=== PATIENT | female | born 1940 | race American Indian/Alaskan Native ===

== ENCOUNTER 2017-05-02 13:03 | Emergency (ER) | payer MEDICARE, OTHER ==
[2017-05-02 13:14] VITALS: RESP 18; TEMP 98; O2SAT 100; BMI 30.7
--- NOTE | 2017-05-02 14:14 | ED PDOC ---
Arrival/HPI - General Chief Complaint: Dizziness/Lightheaded Time Seen by Provider: 05/02/17 13:07 Historian: Patient - History of Present Illness Narrative History of Present Illness (Text): 05/02/17 14:10 A 76 year old female, whose past medical history includes hypertension, hyperlipidemia, and diabetes, presents to the emergency department with sudden onset dizziness this morning. The patient describes the dizziness as room- spinning sensation. She notes that she took medication for the dizziness, but does not recall the name nor the dose. She states she is eating normal and taking her medications appropriately. The patient denies fevers, chills, chest pain, shortness of breath, dyspnea on exertion, cough, abdominal pain, nausea, vomiting, diarrhea, back pain, neck pain, urinary/bowel changes, or any other complaint. PMD: Dr. Bartholomew Time/Duration: Other (This morning) Symptom Onset: Sudden Symptom Course: Unchanged Activities at Onset: Rest, Light Context: Home Past Medical History - Provider Review Nursing Documentation Reviewed: Yes - Infectious Disease Hx of Infectious Diseases: None - Reproductive Menopause: Yes - Cardiac Hx Hypertension: Yes - Pulmonary Hx Respiratory Disorders: No - Neurological Hx Dizziness: Yes Hx Transient Ischemic Attacks (TIA): Yes - HEENT Hx HEENT Disorder: No - Renal Hx Renal Disorder: No - Endocrine/Metabolic Hx Hypothyroidism: Yes - Hematological/Oncological Hx Blood Transfusions: No Hx Blood Transfusion Reaction: No - Integumentary Hx Dermatological Disorder: No - Musculoskeletal/Rheumatological Hx Falls: No - Genitourinary/Gynecological Hx Genitourinary Disorders: No - Psychiatric Hx Depression: No Hx Emotional Abuse: No Hx Physical Abuse: No Hx Substance Use: No - Anesthesia Hx Anesthesia: Yes Hx Anesthesia Reactions: No Hx Malignant Hyperthermia: No - Suicidal Assessment Feels Threatened In Home Enviroment: No Family/Social History - Physician Review Nursing Documentation Reviewed: Yes Family/Social History: No Known Family HX Smoking Status: Never Smoked Hx Alcohol Use: No Hx Substance Use: No Hx Substance Use Treatment: No Allergies/Home Meds Allergies/Adverse Reactions: Allergies No Known Allergies Allergy (Verified 12/27/11 18:34) Home Medications: Home Meds Medication Instructions Recorded Confirmed Hydrochlorothiazide/Irbesart 12.5 mg PO DAILY 12/27/11 05/02/17 [Avalide 25 mg-300 mg] Insulin Aspart Prot/Insuln Asp 30 units SC BID 12/27/11 05/02/17 [Novolog Mix 70/30 70 U/ml-30 U/ml 10 ml] Insulin Detemir [Levemir] 20 unit SC HS 12/27/11 05/02/17 Levothyroxine Sodium 0.5 mg PO DAILY 12/27/11 05/02/17 [Levothyroxine] Metoprolol Succinate 25 mg PO DAILY 12/27/11 05/02/17 Pravastatin Sodium [Pravastatin] 80 mg PO DAILY 12/27/11 05/02/17 Ergocalciferol [Vitamin D2] 1.25 mg PO MON 04/25/13 05/02/17 Review of Systems - Physician Review All systems were reviewed & negative as marked: Yes - Review of Systems Constitutional: absent: Fevers, Night Sweats Respiratory: absent: SOB, Cough Cardiovascular: absent: Chest Pain, MARTINS Gastrointestinal: absent: Abdominal Pain, Stool Changes, Diarrhea, Nausea, Vomiting Genitourinary Female: absent: Urine Output Changes Musculoskeletal: absent: Back Pain, Neck Pain Neurological: Dizziness Physical Exam Vital Signs Reviewed: Yes Vital Signs Temp Pulse Resp BP Pulse Ox 05/02/17 15:54 79 18 152/75 H 100 05/02/17 14:09 86 18 158/74 H 100 05/02/17 13:13 98.0 F 98 H 18 165/79 H 100 Temperature: Afebrile Blood Pressure: Hypertensive Pulse: Tachycardic Respiratory Rate: Normal Appearance: Positive for: Well-Appearing, Non-Toxic, Comfortable Pain Distress: None Mental Status: Positive for: Alert and Oriented X 3 Finger Stick Blood Glucose: 78 - Systems Exam Head: Present: Atraumatic, Normocephalic Pupils: Present: PERRL Extroacular Muscles: Present: EOMI Conjunctiva: Present: Normal Mouth: Present: Moist Mucous Membranes Neck: Present: Normal Range of Motion Respiratory/Chest: Present: Clear to Auscultation, Good Air Exchange. No: Respiratory Distress, Accessory Muscle Use Cardiovascular: Present: Regular Rate and Rhythm, Normal S1, S2. No: Murmurs Abdomen: Present: Normal Bowel Sounds. No: Tenderness, Distention, Peritoneal Signs Back: Present: Normal Inspection Upper Extremity: Present: Normal Inspection. No: Cyanosis, Edema Lower Extremity: Present: Normal Inspection. No: Edema Neurological: Present: GCS=15, CN II-XII Intact, Speech Normal Skin: Present: Warm, Dry, Normal Color. No: Rashes Psychiatric: Present: Alert, Oriented x 3, Normal Insight, Normal Concentration Medical Decision Making ED Course and Treatment: 05/02/17 14:15 Impression: A 76 year old female presents to the emergency department with a complaint of sudden onset dizziness this morning. Differential Diagnosis included but are not limited to: Benign positional vertigo vs Hypoglycemia Plan: -- EKG -- Labs -- Urinalysis -- Antivert -- Finger stick 78 -- Reassess and disposition Prior Visits: Notes and results from previous visits were reviewed. Patient was last seen in the emergency department on 12/27/11. The patient was seen for unsteady gait. Patient was hospitalized. Progress Notes: EKG: Ordered, reviewed, and independently interpreted the EKG. Rate : 95 BPM Rhythm : NSR Interpretation : Non specific ST- changes 05/02/17 18:04 Patient felt better with no longer having dizziness after given meclizine. UA negative for UTI. Patient's FS was 78 on arrival. Her blood work showed lower glucose at 53. Patient was given food. She felt even better after this. Patient hgb is 8 and Creatinine mildly elevated and states her PMD Dr. Bartholomew said it was at this level. Her family member arrived who will take her home. She was advised to follow up with Dr. Bartholomew in 1-2days. She was explained to keep eating at her normal level with proper dosages of insulin and her other meds. She was advised to return to the ED if symptoms worsen or any other concern. - Lab Interpretations Lab Results: 05/02/17 16:00 05/02/17 16:00 Lab Results 05/02/17 16:50: Urine Color Yellow, Urine Appearance Clear, Urine pH 6.0, Ur Specific [place] 1.020, Urine Protein Negative, Urine Glucose (UA) Negative, Urine Ketones Negative, Urine Blood Trace-intact H, Urine Nitrate Negative, Urine Bilirubin Negative, Urine Urobilinogen 0.2, Ur Leukocyte Esterase Small H , Urine RBC 0 - 2, Urine WBC 2 - 5, Ur Epithelial Cells 1 - 3, Urine Bacteria Few 05/02/17 16:00: Sodium 143, Potassium 4.5, Chloride 105, Carbon Dioxide 30, Anion Gap 13, BUN 21, Creatinine 1.3 H, Est GFR ( Amer) 48, Est GFR (Non- Af Amer) 40, Random Glucose 53 L, Calcium 9.8, Magnesium 2.0 05/02/17 16:00: WBC 6.3, RBC 2.90 L, Hgb 8.3 L, Hct 26.1 L, MCV 90.0, MCH 28.6, MCHC 31.8, RDW 19.3 H, Plt Count 372, MPV 9.2, Gran % 44.1 L, Lymph % (Auto) 47.0 H, [place] % (Auto) 6.8 H, Eos % (Auto) 1.9, Baso % (Auto) 0.2, Gran # 2.80, Lymph # 3.0, [place] # 0.4, Eos # 0.1, Baso # 0.01 I have reviewed the lab results: Yes - EKG Interpretation Interpreted by ED Physician: Yes Type: 12 lead EKG - Medication Orders Current Medication Orders: Discontinued Medications Meclizine HCl (Antivert) 25 mg PO STAT STA Stop: 05/02/17 13:52 Last Admin: 05/02/17 14:22 Dose: 25 mg - Scribe Statement The provider has reviewed the documentation as recorded by the Tao Gallegos Provider Scribe Attestation: All medical record entries made by the Dangeloibseun were at my direction and personally dictated by me. I have reviewed the chart and agree that the record accurately reflects my personal performance of the history, physical exam, medical decision making, and the department course for this patient. I have also personally directed, reviewed, and agree with the discharge instructions and disposition. Disposition/Present on Arrival - Present on Arrival Any Indicators Present on Arrival: No History of DVT/PE: No History of Uncontrolled Diabetes: No Urinary Catheter: No History of Decub. Ulcer: No History Surgical Site Infection Following: None - Disposition Have Diagnosis and Disposition been Completed?: Yes Diagnosis: Dizziness, Hypoglycemia Disposition: HOME/ ROUTINE Disposition Time: 18:04 Patient Plan: Discharge Condition: IMPROVED Discharge Instructions (ExitCare): Diabetic Hypoglycemia (ED), Dizziness (ED) Additional Instructions: Ms Lui, thank you for letting us take care of you today. Your provider was Dr. Humphries. You were treated for Hypoglycemia, Dizziness. The emergency medical care you received today was directed at your acute symptoms. If you were prescribed any medication, please fill it and take as directed. It may take several days for your symptoms to resolve. Return to the Emergency Department if your symptoms worsen, do not improve, or if you have any other problems. Please contact your doctor or call one of the physicians/clinics you have been referred to that are listed on the Patient Visit Information form that is included in your discharge packet. Bring any paperwork you were given at discharge with you along with any medications you are taking to your follow up visit. Our treatment cannot replace ongoing medical care by a primary care provider (PCP) outside of the emergency department. Thank you for allowing the [facility] team to be part of your care today. If you had an X-Ray or CT scan: A Radiologist will review the ED reading if any change in treatment is needed we will contact you. If you had a blood, urine, or wound culture: It will take several days for the results, if any change in treatment is needed we will contact you. If you had an STI test: It will take 48 hours for the results. Please call after 1 week if you have not heard back. Referrals: Griselda Bartholomew MD [Primary Care Provider] - Follow up with primary Forms: [employer] (Swazi)
[2017-05-02 15:55] VITALS: BP 152/75; PULSE 79
[2017-05-02 16:22] LABS: BASO # 0.01 K/mm3 (0.0-2.0); BASO % 0.2 % (0.0-3.0); EOS # 0.1 (0.0-0.7); EOS % 1.9 % (1.5-5.0); GRAN # 2.8 (1.4-6.5); GRAN % 44.1 % (50.0-68.0); HEMATOCRIT 26.1 % (36.0-48.0); MEAN CORPUSCULAR HEMOGLOBIN 28.6 pg (25.0-35.0); MEAN CORPUSCULAR HGB CONC 31.8 g/dl (31.0-37.0); MEAN PLATELET VOLUME 9.2 fl (7.0-11.0); MONO # 0.4 (0.1-0.6); MONO % 6.8 % (1.0-6.0); RED CELL DISTRIBUTION WIDTH 19.3 % (11.5-14.5); WHITE BLOOD COUNT 6.3 10^3/ul (4.5-11.0)
[2017-05-02 16:29] LABS: CALCIUM 9.8 mg/dL (8.4-10.5); POTASSIUM 4.5 mmol/L (3.6-5.0)
[2017-05-02 17:00] LABS: URINE BILIRUBIN NEGATIVE (NEGATIVE); URINE BLOOD TRACE-INTACT (NEGATIVE); URINE COLOR YELLOW (YELLOW); URINE GLUCOSE (UA) NEGATIVE (NEGATIVE); URINE KETONE NEGATIVE (NEGATIVE); URINE LEUKOCYTE ESTERASE SMALL Leu/uL (NEGATIVE); URINE PROTEIN NEGATIVE mg/dL (<30 mg/dL); URINE UROBILINOGEN 0.2 E.U./dL (<1 E.U./dL)
[2017-05-02 17:10] LABS: URINE APPEARANCE CLEAR (CLEAR); URINE BACTERIA FEW (NEG); URINE RBC 0 - 2 /hpf (0-2)
--- NOTE | 2017-05-03 10:14 | CARD ---
APPROVED REPORT EKG Measurement Heart [id number] <Conclusion> Normal sinus rhythm Septal infarct, age undetermined Abnormal ECG
== END 2017-05-02 18:04 | disposition home or self-care (01) ==
LOC: ED 13:03
DX: E11.649 Type 2 diabetes mellitus with hypoglycemia without coma (principal); R42 Dizziness and giddiness; E78.5 Hyperlipidemia, unspecified; I10 Essential (primary) hypertension; E03.9 Hypothyroidism, unspecified; Z86.73 Personal history of transient ischemic attack (TIA), and cerebral infarction without residual deficits

== ENCOUNTER 2017-06-12 11:12 | Inpatient (IN) | payer MEDICARE, OTHER ==
[2017-06-12 11:16] VITALS: BMI 31.9
[2017-06-12] MEDS ORDERED: Morphine 4 mg/ml ISec IVP STA (12:06)
--- NOTE | 2017-06-12 12:42 | ED PDOC ---
Arrival/HPI - General Chief Complaint: Abnormal Skin Integrity Time Seen by Provider: 06/12/17 11:38 Historian: Patient - History of Present Illness Narrative History of Present Illness (Text): 06/12/17 11:40 Juhi Lui is a 76 year old female, whose past medical hypothyroidism, diabetes, and hypertension, who presents to the emergency department complaining of two large mass under the right anterior lower portion of the neck and left axillafor unknown amount of time. Patient states that she thought it was just an extra skin fold but realized it was a mass due to pain she felt while bathing two days ago. Patient indicates that she already has a benign thyroid mass on the left anterior part of her neck going into the left upper chest, which was evaluated 3 years ago. At the time, the patient was given the option of having surgery to remove the mass but declined. Patient reportedly does yearly ultrasounds and CT scans of the mass, and states that the last scans were a year ago which showed no changes. Patient denies any fever, chills , chest pain, shortness of breath, headache, rash, back pain, neck pain, numbness, weakness, or any other complaint at this time. PMD: Dr. Bartholomew Time/Duration: Other (unknown) Symptom Course: Unchanged Modifying Factors (Text): none Context: Home Past Medical History - Provider Review Nursing Documentation Reviewed: Yes - Infectious Disease Hx of Infectious Diseases: None - Cardiac Hx Hypertension: Yes - Pulmonary Hx Respiratory Disorders: No - Neurological Hx Dizziness: Yes Hx Transient Ischemic Attacks (TIA): Yes - HEENT Hx HEENT Disorder: No - Renal Hx Renal Disorder: No - Endocrine/Metabolic Hx Diabetes Mellitus Type 2: Yes Hx Hypothyroidism: Yes - Hematological/Oncological Hx Blood Transfusions: No Hx Blood Transfusion Reaction: No - Integumentary Hx Dermatological Disorder: No - Musculoskeletal/Rheumatological Hx Falls: No - Genitourinary/Gynecological Hx Genitourinary Disorders: No - Psychiatric Hx Depression: No Hx Emotional Abuse: No Hx Physical Abuse: No Hx Substance Use: No - Anesthesia Hx Anesthesia: Yes Hx Anesthesia Reactions: No Hx Malignant Hyperthermia: No - Suicidal Assessment Feels Threatened In Home Enviroment: No Family/Social History - Physician Review Nursing Documentation Reviewed: Yes Family/Social History: No Known Family HX Smoking Status: Never Smoked Hx Alcohol Use: No Hx Substance Use: No Hx Substance Use Treatment: No Allergies/Home Meds Allergies/Adverse Reactions: Allergies No Known Allergies Allergy (Verified 12/27/11 18:34) Home Medications: Home Meds Medication Instructions Recorded Confirmed Insulin Aspart Prot/Insuln Asp 30 units SC BID 12/27/11 06/12/17 [Novolog Mix 70/30 70 U/ml-30 U/ml 10 ml] Insulin Detemir [Levemir] 20 unit SC HS 12/27/11 06/12/17 Ergocalciferol [Drisdol 50,000 1 cap PO Q7D 06/12/17 06/12/17 Intl Units Cap] Irbesartan/Hydrochlorothiazide 1 tab PO DAILY 06/12/17 06/12/17 [Avalide 300-12.5 mg Tablet] Levothyroxine [Synthroid] 1 tab PO DAILY 06/12/17 06/12/17 Metoprolol Succinate [Toprol XL] 1 tab PO DAILY 06/12/17 06/12/17 Pravastatin Sodium [Pravastatin 1 tab PO HS 06/12/17 06/12/17 Sodium] Review of Systems - Physician Review All systems were reviewed & negative as marked: Yes - Review of Systems Constitutional: absent: Fevers, Night Sweats Eyes: absent: Vision Changes ENT: absent: Hearing Changes Respiratory: absent: SOB, Cough Cardiovascular: absent: Chest Pain Gastrointestinal: absent: Abdominal Pain Genitourinary Female: absent: Dysuria, Frequency Musculoskeletal: absent: Arthralgias Skin: Other (large mass on right anterior lower portion of neck going into left upper chest). absent: Rash Neurological: absent: Headache, Dizziness Endocrine: absent: Diaphoresis Hemo/Lymphatic: absent: Adenopathy Psychiatric: absent: Anxiety, Depression Physical Exam Vital Signs Reviewed: Yes Vital Signs Temp Pulse Resp BP Pulse Ox 06/12/17 15:03 100 F H 101 H 20 112/62 98 06/12/17 13:13 101.1 F H 102 H 20 130/67 97 06/12/17 11:17 99.6 F 127 H 18 164/52 H 97 Temperature: Afebrile Blood Pressure: Hypertensive Pulse: Tachycardic Respiratory Rate: Normal Appearance: Positive for: Well-Appearing, Non-Toxic, Comfortable Pain Distress: None Mental Status: Positive for: Alert and Oriented X 3 - Systems Exam Head: Present: Atraumatic, Normocephalic Pupils: Present: PERRL Extroacular Muscles: Present: EOMI Conjunctiva: Present: Normal Mouth: Present: Moist Mucous Membranes Neck: Present: Other (large mass on right anterior lower portion of neck going into left upper chest and left axilla) Respiratory/Chest: Present: Clear to Auscultation, Good Air Exchange. No: Respiratory Distress, Accessory Muscle Use Cardiovascular: Present: Regular Rate and Rhythm, Normal S1, S2. No: Murmurs Abdomen: Present: Normal Bowel Sounds. No: Tenderness, Distention, Peritoneal Signs Rectal: Present: Other (Female EMT was present during the entire exam). No: Occult Blood, Rectal Tenderness, Gross Blood, Nodule/Mass/Lesions Upper Extremity: Present: Normal Inspection. No: Cyanosis, Edema Lower Extremity: Present: Normal Inspection. No: Edema Neurological: Present: GCS=15, CN II-XII Intact, Speech Normal Skin: Present: Warm, Dry, Normal Color. No: Rashes Psychiatric: Present: Alert, Oriented x 3, Normal Insight, Normal Concentration Medical Decision Making ED Course and Treatment: 06/12/17 13:06 Impression: 76 year old female complaining of hand-sized mass on right anterior lower portion of neck going into left upper chest for an unknown amount of time. Differential Diagnosis included but are not limited to: Plan: -- Chest CT w/ contrast -- Chest x-ray -- Blood Culture -- Morphine and Zofran -- Reassess and disposition Prior Visits: Notes and results from previous visits were reviewed. Patient was last seen in the emergency department on 05/02/17 for sudden onset dizziness. Patient was discharged home. Progress Notes: Repeat VS T 101.1 P 102. Blood cxs and VBG ordered. CXR : NAD, as read by PA Labs reviewed : Hgb is 7.7 (in Nov pt's Hgb was 8.3), lactic acid 1.3, rest of the labs reviewed and are wnl. UA pending. CT of the neck and chest results discussed with the radiologist and shows extensive adenopathy, prompting concern for lymphoma. On reevaluation, patient is resting in bed comfortably in no acute distress, remains awake, alert, oriented 3, patient is breathing easily and unlabored, speaking in full sentences. Lab, CXR and CT results discussed with the patient in great detail. Considering that source of fever at this time is unknown and that the patient does not appear to be septic acutely, will hold off on antibiotic administration. Case d/w Dr. Bartholomew, agrees with plan for inpatient admission. The patient notified of plan for further inpatient treatment and workup, she agrees with current plan. - Lab Interpretations Lab Results: 06/12/17 12:30 06/12/17 12:30 Lab Results 06/12/17 12:30: pO2 104 H, VBG pH 7.40, VBG pCO2 46.0, VBG HCO3 28.5 H, VBG Total CO2 29.9 H, VBG O2 Sat (Calc) 99.6 H, VBG Base Excess 3.0 H, VBG Potassium 4.3, Sodium 138.0, Chloride 107.0, Glucose 219 H, Lactate 1.3, FiO2 21.0, Venous Blood Potassium 4.3 06/12/17 12:30: Sodium 140, Chloride 104, Potassium 4.3, Carbon Dioxide 25, Anion Gap 16, BUN 29 H, Creatinine 1.2, Est GFR ( Amer) 53, Est GFR (Non- Af Amer) 43, Random Glucose 217 H, Calcium 9.3, Total Bilirubin 1.1, AST 19, ALT 23, Alkaline Phosphatase 69, Total Protein 7.6, Albumin 4.2, Globulin 3.5, Albumin/Globulin Ratio 1.2 06/12/17 12:30: PT 13.6 H, INR 1.23 H, APTT 28.1 06/12/17 12:30: WBC 9.7 D, RBC 2.65 L, Hgb 7.7 L, Hct 23.8 L, MCV 89.8, MCH 29.1, MCHC 32.4, RDW 19.0 H, Plt Count 377, MPV 9.5, Gran % 71.5 H, Lymph % ( Auto) 24.6, Ida % (Auto) 3.2, Eos % (Auto) 0.6 L, Baso % (Auto) 0.1, Gran # 6.93 H, Lymph # 2.4, Ida # 0.3, Eos # 0.1, Baso # 0.01 I have reviewed the lab results: Yes - RAD Interpretation Narrative RAD Interpretations (Text): 06/12/17 16:30 CT SOFT TISSUE NECK w/ IV CONTRAST : FINDINGS: NASOPHARYNX: Unremarkable. SUPRAHYOID NECK: Unremarkable oropharynx, oral cavity, parapharyngeal space and retropharyngeal space. Asymmetry, displacement of the oropharynx related to enlargement of the left lobe of the thyroid in the isthmus. This is displaced from the left to the right side. There is distortion of normal tissue planes floor of mouth. INFRAHYOID NECK: Unremarkable larynx, hypopharynx, and supraglottic space. Vocal cords intact. Structures in the infrahyoid neck are also displaced by the markedly enlarged thyroid gland. MASS: Massive lymphadenopathy. The largest lymph node chains on the left are in the scalene and supraclavicular region. The composite of these lymph nodes on axial image 172 is 9.6 x 5.5 cm. GLANDS: Parotid and submandibular glands unremarkable. Normal size thyroid gland, without nodule. LYMPH NODES: Massive lymphadenopathy. Virtually every lymph node chain identified from the base of the skull to including submandibular chains, jugular deg rash strict lymph node chains, posterior triangle. Supraclavicular and scalene adenopathy detected lymph nodes on the left side of the neck far exceed those on the right side. CERVICAL SPINE: No fracture or focal lesion. VASCULAR STRUCTURES: Unremarkable. OTHER FINDINGS: Markedly enlarged thyroid on the coronal images the left lobe measures 5.8 x 9 cm, the right lobe 3.2 x 7.2 cm. In the isthmus is enlarged, there is intrathoracic extension of the thyroid. The thyroid gland displaces vascular structures bilaterally. IMPRESSION: 1. Profound lymphadenopathy. Virtually all lymph node chains from the base of the skull to the thoracic inlet are involved. 2. Massive thyromegaly displacing or pharyngeal and hypopharyngeal structures to the right. There is some narrowing of the trachea. At the level of the thoracic inlet, orthogonal measurements of the trachea 10.[address] CHEST w/ IV CONTRAST : FINDINGS: RELEVANT FINDINGS IN THE THORAX: Massive lymphadenopathy extending in an uninterrupted fashion from the neck through the supraclavicular and scalene regions on the left and to lesser extent on the right. Massive axillary adenopathy more prominent on the left than the right. Lymph nodes vary in size from less than 1 cm to 3.6 x 5.8 cm in the left axilla. LUNGS: Clear lungs. Visualized airway clear. MEDIASTINUM: Unremarkable thoracic aorta. No aneurysm or dissection. Normal sized heart. Main pulmonary artery unremarkable. No vascular congestion. No appreciable hilar mediastinal lymphadenopathy. PLEURA: No pleural fluid. No pneumothorax. BONES: No fracture. No destructive lesion. UPPER ABDOMEN: Incompletely visualize retrocrural and retroperitoneal adenopathy. The largest retrocrural lymph node measures 3.2 x 4.7 cm. OTHER FINDINGS: Markedly enlarged thyroid unknown finding and based on information provided at the time of this interpretation workup as benign etiology likely multinodular goiter although pathologic diagnosis is not readily available. IMPRESSION: Massive lymphadenopathy affecting visualized scalene and supraclavicular lymph node chains primarily on the left. Additional disease identified in both axilla left greater than right. There is sparing of the hilar and mediastinal lymph node chains. Incompletely visualize retroperitoneal adenopathy interposed between the aorta, adjacent vertebral bodies and left kidney the dennys mass measures 2.7 x 4.9 cm. Additional smaller lymph nodes identified left upper quadrant circumferentially about the splenic artery. Retrocrural lymphadenopathy also identified. Radiology Orders: 06/12/17 12:04 CHEST TWO VIEWS (PA/LAT) [RAD] Stat 06/12/17 12:06 CHEST W/CONTRAST [CT] Stat 06/12/17 13:11 NECK SOFT TISSUE W/CONTRAST [CT] Stat - Medication Orders Current Medication Orders: Acetaminophen (Tylenol 325mg Tab) 650 mg PO Q6H PRN PRN Reason: Fever >100.4 F Atorvastatin Calcium (Lipitor) 20 mg PO DIN [facility] Ceftriaxone Sodium (Rocephin 1 Gram Ivpb) 1 gm in 100 mls @ 100 mls/hr IVPB DAILY SUZETTE PRN Reason: Protocol Vancomycin HCl (Vancomycin 1gm) 1 gm in 250 mls @ 167 mls/hr IVPB Q12H SUZETTE PRN Reason: Protocol Insulin Lispro Protam/Lispro Human (Humalog Mix 75/25) 30 units SC BID [facility] Levothyroxine Sodium (Synthroid) 1,000 mcg PO DAILY [facility] Losartan Potassium (Cozaar) 100 mg PO DAILY SUZETTE Metoprolol Succinate (Toprol Xl) 25 mg PO DAILY SUZETTE Discontinued Medications Acetaminophen (Tylenol 325mg Tab) 650 mg PO STAT STA Stop: 06/12/17 14:15 Last Admin: 06/12/17 14:25 Dose: 650 mg Sodium Chloride (Sodium Chloride 0.9%) 500 mls @ 500 mls/hr IV .Q1H STA Stop: 06/12/17 15:32 Last Admin: 06/12/17 14:56 Dose: 500 mls/hr eMAR Start Stop Document 06/12/17 14:56 GMI (Rec: 06/12/17 15:02 GMI [id number]) Intravenous Solution Start Date 06/12/17 Start Time 15:02 Morphine Sulfate (Morphine) 2 mg IVP STAT STA Stop: 06/12/17 12:07 Last Admin: 06/12/17 13:00 Dose: 2 mg MAR Pain Assessment Document 06/12/17 13:00 GMI (Rec: 06/12/17 13:08 GMI [id number]) Pain Reassessment Is this a pain reassessment? Yes Sleep Is patient sleeping during reassessment? No Presence of Pain Presence of Pain Yes Pain Scale Used Pain Scale Used Numeric Location Left, Right or Bilateral Left Pain Location Body Site Arm Description Description Constant Intensity of Pain at present 10 IVP Administration Document 06/12/17 13:00 GMI (Rec: 06/12/17 13:08 GMI [id number]) Charges for Administration # of IVP Administrations 1 Re-Assess: MAR Pain Assessment Document 06/12/17 14:00 GMI (Rec: 06/12/17 14:27 GMI [id number]) Pain Reassessment Is this a pain reassessment? Yes Sleep Is patient sleeping during reassessment? No Presence of Pain Presence of Pain Yes Non-Formulary Medication (Insulin Aspart Prot/Insuln Asp [Novolog Mix 70-30 Vial ]) 30 units SC BID SUZETTE Ondansetron HCl (Zofran Inj) 4 mg IVP STAT STA Stop: 06/12/17 12:07 Last Admin: 06/12/17 12:49 Dose: 4 mg IVP Administration Document 06/12/17 12:49 GMI (Rec: 06/12/17 12:49 GMI [id number]) Charges for Administration # of IVP Administrations 1 - PA / PROPERTY UTILIZATION MANAGER / Resident Statement MD/DO has reviewed & agrees with the documentation as recorded. - Scribe Statement The provider has reviewed the documentation as recorded by the Tao Hobson Provider Scribe Attestation: All medical record entries made by the Scribe were at my direction and personally dictated by me. I have reviewed the chart and agree that the record accurately reflects my personal performance of the history, physical exam, medical decision making, and the department course for this patient. I have also personally directed, reviewed, and agree with the discharge instructions and disposition. Disposition/Present on Arrival - Present on Arrival Any Indicators Present on Arrival: No History of DVT/PE: No History of Uncontrolled Diabetes: No Urinary Catheter: No History of Decub. Ulcer: No History Surgical Site Infection Following: None - Disposition Have Diagnosis and Disposition been Completed?: Yes Diagnosis: Diffuse lymphadenopathy Disposition: HOSPITALIZED Disposition Time: 14:45 Patient Plan: Admission Patient Problems: Current Active Problems Problem Status Onset Diffuse lymphadenopathy Acute Condition: STABLE
[2017-06-12 12:56] LABS: VENOUS BLOOD GAS PO2 104 mm/Hg (30-55)
[2017-06-12 12:58] LABS: BASO # 0.01 K/mm3 (0.0-2.0); BASO % 0.1 % (0.0-3.0); EOS # 0.1 (0.0-0.7); EOS % 0.6 % (1.5-5.0); GRAN # 6.93 (1.4-6.5); GRAN % 71.5 % (50.0-68.0); LYMPH # 2.4 (1.2-3.4); LYMPH % 24.6 % (22.0-35.0); MEAN CELL VOLUME 89.8 fl (80.0-105.0); MEAN CORPUSCULAR HEMOGLOBIN 29.1 pg (25.0-35.0); MEAN CORPUSCULAR HGB CONC 32.4 g/dl (31.0-37.0); MEAN PLATELET VOLUME 9.5 fl (7.0-11.0); MONO # 0.3 (0.1-0.6); MONO % 3.2 % (1.0-6.0); RBC 2.65 10^6/uL (3.5-6.1); WHITE BLOOD COUNT 9.7 10^3/ul (4.5-11.0)
[2017-06-12 13:02] LABS: ALB/GLOB RATIO 1.2 (1.1-1.8); ALBUMIN 4.2 g/dL (3.0-4.8); CALCIUM 9.3 mg/dL (8.4-10.5)
[2017-06-12 13:03] LABS: HEMOGLOBIN 7.7 g/dL (12.0-16.0)
[2017-06-12 13:04] LABS: INR 1.23 (0.93-1.08); PARTIAL THROMBOPLASTIN TIME 28.1 Seconds (25.1-36.5); PROTHROMBIN TIME 13.6 SECONDS (9.4-12.5)
[2017-06-12] MEDS ORDERED: Iodixanol 320 mg/ml 150 ml Bottle IV ONE (13:41)
--- NOTE | 2017-06-12 13:46 | RAD ---
HISTORY: Left axillary mass. COMPARISON: No prior. TECHNIQUE: Chest PA and lateral FINDINGS: LUNGS: No active pulmonary disease. PLEURA: No significant pleural effusion identified. No pneumothorax apparent. CARDIOVASCULAR: No radiographic findings to suggest acute or significant cardiovascular disease. OSSEOUS STRUCTURES: No significant abnormalities. VISUALIZED UPPER ABDOMEN: Normal. OTHER FINDINGS: None. IMPRESSION: No active disease.
[2017-06-12] MEDS ORDERED: Sodium Chloride 0.9% 500 ML IV STA (14:33)
--- NOTE | 2017-06-12 14:43 | CT ---
PROCEDURE: CT NECK WITH CONTRAST HISTORY: Left-sided neck mass. Relevant medical history: The patient has known thyroid disease, benign according to information provided by physician project administrative assistant. COMPARISON: Macro today's CT thoraxNone TECHNIQUE: CT of the neck with intravenous contrast. Coronal and sagittal reformats generated. Intravenous contrast dose: 150 cc Visipaque 320 Radiation dose: DLP 344.08 mGy-cm This CT exam was performed using one or more of the following dose reduction techniques: Automated exposure control, adjustment of the mA and/or kV according to patient size, and/or use of iterative reconstruction technique. FINDINGS: NASOPHARYNX: Unremarkable. SUPRAHYOID NECK: Unremarkable oropharynx, oral cavity, parapharyngeal space and retropharyngeal space. Asymmetry, displacement of the oropharynx related to enlargement of the left lobe of the thyroid in the isthmus. This is displaced from the left to the right side. There is distortion of normal tissue planes floor of mouth. INFRAHYOID NECK: Unremarkable larynx, hypopharynx, and supraglottic space. Vocal cords intact. Structures in the infrahyoid neck are also displaced by the markedly enlarged thyroid gland. MASS: Massive lymphadenopathy. The largest lymph node chains on the left are in the scalene and supraclavicular region. The composite of these lymph nodes on axial image 172 is 9.6 x 5.5 cm. GLANDS: Parotid and submandibular glands unremarkable. Normal size thyroid gland, without nodule. LYMPH NODES: Massive lymphadenopathy. Virtually every lymph node chain identified from the base of the skull to including submandibular chains, jugular deg rash strict lymph node chains, posterior triangle. Supraclavicular and scalene adenopathy detected lymph nodes on the left side of the neck far exceed those on the right side. CERVICAL SPINE: No fracture or focal lesion. VASCULAR STRUCTURES: Unremarkable. OTHER FINDINGS: Markedly enlarged thyroid on the coronal images the left lobe measures 5.8 x 9 cm, the right lobe 3.2 x 7.2 cm. In the isthmus is enlarged, there is intrathoracic extension of the thyroid. The thyroid gland displaces vascular structures bilaterally. IMPRESSION: 1. Profound lymphadenopathy. Virtually all lymph node chains from the base of the skull to the thoracic inlet are involved. 2. Massive thyromegaly displacing or pharyngeal and hypopharyngeal structures to the right. There is some narrowing of the trachea. At the level of the thoracic inlet, orthogonal measurements of the trachea 10.5 x 15.7 mm Communication of results: I discussed the findings with the physician project administrative assistant involved in the care and management of this patient Blanca Starr PA-C. Study completed 13:51 Verbal results provided
--- NOTE | 2017-06-12 14:49 | CT ---
PROCEDURE: CT Chest with contrast HISTORY: large mass in the L side of the neck axilla COMPARISON: CT neck TECHNIQUE: Contiguous axial images were obtained through the chest with intravenous contrast enhancement. Sagittal and coronal reconstructions were performed. IV contrast: 150 cc Omnipaque 350 Radiation dose (DLP): 683.99 mGy-cm. This CT exam was performed using one or more of the following dose reduction techniques: Automated exposure control, adjustment of the mA and/or kV according to patient size, and/or use of iterative reconstruction technique. FINDINGS: RELEVANT FINDINGS IN THE THORAX: Massive lymphadenopathy extending in an uninterrupted fashion from the neck through the supraclavicular and scalene regions on the left and to lesser extent on the right. Massive axillary adenopathy more prominent on the left than the right. Lymph nodes vary in size from less than 1 cm to 3.6 x 5.8 cm in the left axilla. LUNGS: Clear lungs. Visualized airway clear. MEDIASTINUM: Unremarkable thoracic aorta. No aneurysm or dissection. Normal sized heart. Main pulmonary artery unremarkable. No vascular congestion. No appreciable hilar mediastinal lymphadenopathy. PLEURA: No pleural fluid. No pneumothorax. BONES: No fracture. No destructive lesion. UPPER ABDOMEN: Incompletely visualize retrocrural and retroperitoneal adenopathy. The largest retrocrural lymph node measures 3.2 x 4.7 cm. OTHER FINDINGS: Markedly enlarged thyroid unknown finding and based on information provided at the time of this interpretation workup as benign etiology likely multinodular goiter although pathologic diagnosis is not readily available. IMPRESSION: Massive lymphadenopathy affecting visualized scalene and supraclavicular lymph node chains primarily on the left. Additional disease identified in both axilla left greater than right. There is sparing of the hilar and mediastinal lymph node chains. Incompletely visualize retroperitoneal adenopathy interposed between the aorta, adjacent vertebral bodies and left kidney the dennys mass measures 2.7 x 4.9 cm. Additional smaller lymph nodes identified left upper quadrant circumferentially about the splenic artery. Retrocrural lymphadenopathy also identified. Communication of results: I discussed the findings with the physician payroll assistant involved in the care and management of this patient Blanca Starr PA-C. Study completed 13:51 Verbal results provided
[2017-06-12] MEDS ORDERED: Levothyroxine 50 MCG TAB PO SCH (15:45)
[2017-06-12] MEDS ORDERED: HYDROCHLOROTHIAZIDE PO SCH (15:45)
[2017-06-12] MEDS ORDERED: Metoprolol Succinate 25 mg XL Tab PO SCH (15:45)
[2017-06-12] MEDS ORDERED: [UNRECOGNIZED DRUG - OTHER] PO SCH (15:45)
[2017-06-12] MEDS ORDERED: IRBESARTAN PO SCH (15:45)
[2017-06-12 16:48] LABS: TOTAL IRON BINDING CAPACITY 256 ug/dL (265-497)
[2017-06-12 16:53] LABS: % IRON SATURATION 10 % (20-55); IRON 25 ug/dL (45-180)
[2017-06-12] MEDS: cefTRIAXone 1 gm 1 GM/100 ML BAG IVPB SCH (16:59)
[2017-06-12] MEDS ORDERED: Sodium Chloride 0.9% 1,000 ML IV STA (17:12)
[2017-06-12] MEDS: Vancomycin 1gm in NS 250ml 1 GM/250 ML BAG IVPB SCH (17:13)
[2017-06-12 17:14] LABS: URINE BILIRUBIN NEGATIVE (NEGATIVE); URINE BLOOD SMALL (NEGATIVE); URINE GLUCOSE (UA) NEGATIVE (NEGATIVE); URINE LEUKOCYTE ESTERASE MODERATE Leu/uL (NEGATIVE); URINE NITRATE NEGATIVE (NEGATIVE); URINE PROTEIN 30 mg/dL (<30 mg/dL)
[2017-06-12 17:15] LABS: URINE APPEARANCE SL CLOUDY (CLEAR); URINE COLOR YELLOW (YELLOW)
[2017-06-12] MEDS: Metoprolol Succinate 25 mg XL Tab PO SCH (17:23)
[2017-06-12 17:27] LABS: URINE WBC 20 - 25 /hpf (0-6)
[2017-06-12 17:28] LABS: URINE BACTERIA MANY (NEG)
[2017-06-12] MEDS ORDERED: INSULN ASP SC SCH (18:00)
[2017-06-12] MEDS ORDERED: INSULIN ASPART PROT SC SCH (18:00)
[2017-06-12] MEDS ORDERED: [UNRECOGNIZED DRUG - OTHER] SC SCH (18:00)
[2017-06-12] MEDS ORDERED: Darbepoetin Alfa 100 mcg/ml Inj SC ONE (18:43)
[2017-06-12] MEDS: Insulin Lispro (humaLOG) MIX 75/25(10 ml) SC SCH (22:06)
[2017-06-12] MEDS ORDERED: Influenza Vaccine 60 mcg/0.5 mL SYR (4YR UP) IM ONE (22:16)
[2017-06-12] MEDS ORDERED: Pneumococcal 23-Valent Vaccine IM ONE (22:16)
--- NOTE | 2017-06-13 01:30 | HP ---
HISTORY OF PRESENT ILLNESS: The patient is a 76-year-old known to me from office. The patient came to emergency room because of not feeling well, generalized weakness, was having shortness of breath. She also noted lump in her left axilla. The patient does have a long standing history of lump in the neck for that she had ultrasound done almost a year ago, was told this is goitre. The patient's neck mass is not painful; however, axillary mass getting painful for the last 2 days. The patient was evaluated by surgeon almost 3 to 4 years ago for thyroidectomy, but she did not want to have any surgical intervention done. PAST MEDICAL HISTORY: Significant for: 1. Insulin dependent diabetes. 2. Hypertension. 3. Hyperlipidemia. 4. Hypothyroidism. ALLERGIES: SHE IS NOT ALLERGIC TO ANY MEDICATIONS. MEDICATIONS AT HOME: She is on insulin, atorvastatin, levothyroxine, metoprolol, and vitamin D. SOCIAL HISTORY: She lives by herself with her son. Denies smoking or drinking. REVIEW OF SYSTEMS: Significant for generalized weakness and enlarged goitre and axillary lump. PHYSICAL EXAMINATION GENERAL: The patient is awake, alert, oriented and communicative. VITAL SIGNS: She has temperature of 99.6 orally, but rectally is 101.1, pulse 102, respirations 20 and blood pressure 130/67. LUNGS: Bilateral fair airflow. No rhonchi or crackle. She has large goitre occupying anterior and lateral aspect of the neck. She does have a small axillary lump slightly tender to touch on examination. HEART: S1 and S2 audible. ABDOMEN: Soft, obese and nontender. No rebound. No guarding. NEUROLOGIC: The patient is awake, alert and able to communicate. LABORATORY DATA: WBC is 9.7, hemoglobin 7.7, hematocrit 23.8 and platelet of 377. PT 13.6 and INR 1.23. Chemistry: Sodium 140, potassium 4.3, chloride 104, CO2 of 25, BUN 29, creatinine 1.2 and blood sugar of 217. ASSESSMENT: 1. A CT scan of the neck and chest was done that shows massive lymphadenopathy and midline thyroid mass. 2. Non-insulin dependent diabetes. 3. Hypertension. 4. Hyperlipidemia. 5. Anemia. I advised the patient to have colonoscopy and endoscopy done, because she was noted to be anemic in the office and I also referred her to chief medical physicist, but the patient did not go. PLAN: We will start the patient empirically on antibiotics. I will request Dr. Luong to evaluate her adenopathy, we are going to need lymph node biopsy. We will cover her with IV antibiotics for now and I will reevaluate the patient in a.m. Griselda Bartholomew MD
[2017-06-13] MEDS: Vancomycin 1gm in NS 250ml 1 GM/250 ML BAG IVPB SCH (02:58)
[2017-06-13 07:14] LABS: BASO # 0.01 K/mm3 (0.0-2.0); BASO % 0.1 % (0.0-3.0); EOS # 0.1 (0.0-0.7); EOS % 1.2 % (1.5-5.0); GRAN # 4.5 (1.4-6.5); GRAN % 67.3 % (50.0-68.0); LYMPH # 1.8 (1.2-3.4); LYMPH % 26.3 % (22.0-35.0); MEAN CELL VOLUME 90.2 fl (80.0-105.0); MEAN CORPUSCULAR HEMOGLOBIN 28.6 pg (25.0-35.0); MEAN CORPUSCULAR HGB CONC 31.7 g/dl (31.0-37.0); MEAN PLATELET VOLUME 9.6 fl (7.0-11.0); MONO # 0.3 (0.1-0.6); MONO % 5.1 % (1.0-6.0); RBC 2.24 10^6/uL (3.5-6.1); RED CELL DISTRIBUTION WIDTH 19.3 % (11.5-14.5); WHITE BLOOD COUNT 6.7 10^3/ul (4.5-11.0)
[2017-06-13 07:31] LABS: HEMOGLOBIN 6.4 g/dL (12.0-16.0)
[2017-06-13 07:52] LABS: ALBUMIN 3.3 g/dL (3.0-4.8); ALT/SGPT 22 U/L (7-56); AST/SGOT 23 U/L (14-36); BLOOD UREA NITROGEN 27 mg/dL (7-21); GFR AFRICAN-AMERICAN 48; GFR NON-AFRICAN AMERICAN 40
[2017-06-13 08:19] LABS: T3 1.03 ng/mL (0.97-1.69)
[2017-06-13] MEDS: Metoprolol Succinate 25 mg XL Tab PO SCH (09:14)
[2017-06-13] MEDS: Levothyroxine 50 MCG TAB PO SCH (09:16)
[2017-06-13] MEDS: cefTRIAXone 1 gm 1 GM/100 ML BAG IVPB SCH (09:16)
[2017-06-13] MEDS: Insulin Lispro (humaLOG) MIX 75/25(10 ml) SC SCH ×3 (10:59→18:04)
--- NOTE | 2017-06-13 15:17 | CP.PCM.CON ---
<Poonam Serna - Last Filed: 06/13/17 15:12> History of Present Illness - History of Present Illness History of Present Illness: Surgery Juhi Lui is a 76 year old female, whose past medical hypothyroidism w goiter, diabetes, and hypertension, who presents to the emergency department complaining of two large mass under the right anterior lower portion of the neck and left axillafor unknown amount of time. Patient states that she thought it was just an extra skin fold but realized it was a mass due to pain she felt while bathing two days ago. Patient indicates that she already has a benign thyroid mass on the left anterior part of her neck going into the left upper chest, which was evaluated 3 years ago. At the time, the patient was given the option of having surgery to remove the mass but declined. Patient reportedly does yearly ultrasounds and CT scans of the mass, and states that the last scans were a year ago which showed no changes. Pt reports generalized weakness and SOB. Pt is found to have anemia w hgb og 6.4. Pt is jehovah's withnes and doesn't want blood products. Patient denies any fever, chills, chest pain, headache, rash, back pain, neck pain, numbness, or any other complaint at this time. CT of the neck and chest shows large 10x9cn neck mass causing tracheal deviation and b/l axillary lymphadenopathy largest 4x6 cm in size. Surgery is consulted to evalaute for lymphadenopathy for axillary NL bx PMH : see above Review of Systems - Review of Systems Review of Systems: See HPI Past Patient History - Infectious Disease Hx of Infectious Diseases: None - Past Social History Smoking Status: Never Smoked - CARDIAC Hx Cardiac Disorders: Yes Hx Hypertension: Yes - PULMONARY Hx Respiratory Disorders: No - NEUROLOGICAL Hx Neurological Disorder: Yes Hx Dizziness: Yes Hx Transient Ischemic Attacks (TIA): Yes - HEENT Hx HEENT Problems: No - RENAL Hx Chronic Kidney Disease: No - ENDOCRINE/METABOLIC Hx Endocrine Disorders: Yes Hx Diabetes Mellitus Type 2: Yes Hx Hypothyroidism: Yes - HEMATOLOGICAL/ONCOLOGICAL Hx Blood Disorders: Yes Hx Anemia: Yes (NO BLOOD TRANSFUSION,PT IS CONGREGATION.) - INTEGUMENTARY Hx Dermatological Problems: Yes Other/Comment: 06-12-17 2 LARGE MASS UNDER HER RIGHT ANT. LOWER PORTION OF NECK, AND ARMPIT.ALSO LEFT AXILLA. - MUSCULOSKELETAL/RHEUMATOLOGICAL Hx Musculoskeletal Disorders: Yes Hx Falls: No Hx Unsteady Gait: Yes - GENITOURINARY/GYNECOLOGICAL Hx Genitourinary Disorders: Yes (HYSTERECTOMY) - PSYCHIATRIC Hx Depression: No Hx Emotional Abuse: No Hx Physical Abuse: No Hx Substance Use: No - SURGICAL HISTORY Hx Surgeries: Yes (HYSTERECTOMY) - ANESTHESIA Hx Anesthesia: Yes Hx Anesthesia Reactions: No Hx Malignant Hyperthermia: No Meds Allergies/Adverse Reactions: Allergies Allergy/AdvReac Type Severity Reaction Status Date / Time No Known Allergies Allergy Verified 06/12/17 20:02 - Medications Medications: Current Medications Acetaminophen (Tylenol 325mg Tab) 650 mg PO Q6H PRN PRN Reason: Fever >100.4 F Last Admin: 06/13/17 09:34 Dose: 650 mg Atorvastatin Calcium (Lipitor) 20 mg PO DIN [facility] Last Admin: 06/12/17 17:25 Dose: 20 mg Ceftriaxone Sodium (Rocephin 1 Gram Ivpb) 1 gm in 100 mls @ 100 mls/hr IVPB DAILY [facility] PRN Reason: Protocol Last Admin: 06/13/17 09:16 Dose: 100 mls/hr Doxycycline Hyclate 100 mg/ (Sodium Chloride) 100 mls @ 100 mls/hr IVPB Q12 [facility] PRN Reason: Protocol Last Admin: 06/13/17 10:46 Dose: 100 mls/hr Insulin Lispro Protam/Lispro Human (Humalog Mix 75/25) 30 units SC BID [facility] Last Admin: 06/13/17 13:30 Dose: 30 units Levothyroxine Sodium (Synthroid) 50 mcg PO DAILY [facility] Last Admin: 06/13/17 09:16 Dose: 50 mcg Losartan Potassium (Cozaar) 100 mg PO DAILY [facility] Last Admin: 06/13/17 09:16 Dose: 100 mg Metoprolol Succinate (Toprol Xl) 25 mg PO DAILY [facility] Last Admin: 06/13/17 09:14 Dose: 25 mg Physical Exam - Constitutional Appears: No Acute Distress - Head Exam Head Exam: ATRAUMATIC, NORMAL INSPECTION, NORMOCEPHALIC - Eye Exam Eye Exam: absent: Scleral icterus Pupil Exam: NORMAL ACCOMODATION, PERRL Additional comments: conjunctival pallor - ENT Exam ENT Exam: Mucous Membranes Moist, Normal Exam - Neck Exam Neck exam: Positive for: Lymphadenopathy, Thyromegaly Additional comments: Large goiter. L side larger. - Respiratory Exam Respiratory Exam: Clear to Auscultation Bilateral, NORMAL BREATHING PATTERN - Cardiovascular Exam Cardiovascular Exam: REGULAR RHYTHM - GI/Abdominal Exam GI & Abdominal Exam: Normal Bowel Sounds, Soft. absent: Distended, Tenderness - Extremities Exam Extremities exam: Positive for: full ROM, tenderness Additional comments: b/l axillay lymphadenopathy. TTP. - Back Exam Back exam: NORMAL INSPECTION - Psychiatric Exam Psychiatric exam: Normal Affect, Normal Mood - Skin Skin Exam: Dry, Intact, Normal Color, Warm Results - Vital Signs Recent Vital Signs: Last Vital Signs Temp 98.5 F 06/13/17 14:27 Pulse 88 06/13/17 14:27 Resp 20 06/13/17 14:27 BP 121/58 L 06/13/17 14:27 Pulse Ox 97 06/13/17 12:00 - Labs Result Diagrams: 06/13/17 06:30 06/13/17 06:30 Labs: Laboratory Results - last 24 hr 06/12/17 06/12/17 06/12/17 17:00 17:10 17:30 WBC RBC Hgb Hct MCV MCH MCHC RDW Plt Count MPV Gran % Lymph % (Auto) Storey % (Auto) Eos % (Auto) Baso % (Auto) Gran # Lymph # Storey # Eos # Baso # Sodium Potassium Chloride Carbon Dioxide Anion Gap BUN Creatinine Est GFR ( Amer) Est GFR (Non-Af Amer) POC Glucose (mg/dL) Random Glucose Calcium Total Bilirubin AST ALT Alkaline Phosphatase Lactate Dehydrogenase Total Protein Albumin Globulin Albumin/Globulin Ratio Thyroxine (T4) Total T3 TSH 3rd Generation Urine Color Yellow Urine Appearance Sl cloudy Urine pH 6.0 Ur Specific Carroll 1.025 Urine Protein 30 H Urine Glucose (UA) Negative Urine Ketones Negative Urine Blood Small H Urine Nitrate Negative Urine Bilirubin Negative Urine Urobilinogen 1.0 H Ur Leukocyte Esterase Moderate H Urine RBC 2 - 5 Urine WBC 20 - 25 Ur Epithelial Cells 6 - 8 Urine Bacteria Many Blood Type O POSITIVE Blood Type Confirm O POSITIVE Antibody Screen Negative Crossmatch See Detail BBK History Checked No verified bt 06/12/17 06/13/17 06/13/17 21:42 06:30 06:30 WBC RBC Hgb Hct MCV MCH MCHC RDW Plt Count MPV Gran % Lymph % (Auto) Storey % (Auto) Eos % (Auto) Baso % (Auto) Gran # Lymph # Storey # Eos # Baso # Sodium 140 Potassium 4.4 Chloride 105 Carbon Dioxide 26 Anion Gap 13 BUN 27 H Creatinine 1.3 H Est GFR ( Amer) 48 Est GFR (Non-Af Amer) 40 POC Glucose (mg/dL) 147 H Random Glucose 131 H Calcium 9.0 Total Bilirubin 0.9 AST 23 ALT 22 Alkaline Phosphatase 58 Lactate Dehydrogenase 423 Total Protein 6.6 Albumin 3.3 Globulin 3.3 Albumin/Globulin Ratio 1.0 L Thyroxine (T4) 7.0 Total T3 1.03 TSH 3rd Generation 0.04 L Urine Color Urine Appearance Urine pH Ur Specific Carroll Urine Protein Urine Glucose (UA) Urine Ketones Urine Blood Urine Nitrate Urine Bilirubin Urine Urobilinogen Ur Leukocyte Esterase Urine RBC Urine WBC Ur Epithelial Cells Urine Bacteria Blood Type Blood Type Confirm Antibody Screen Crossmatch BBK History Checked 06/13/17 06/13/17 06/13/17 06:30 07:48 11:27 WBC 6.7 D RBC 2.24 L Hgb 6.4 L* Hct 20.2 L* MCV 90.2 MCH 28.6 MCHC 31.7 RDW 19.3 H Plt Count 350 MPV 9.6 Gran % 67.3 Lymph % (Auto) 26.3 Storey % (Auto) 5.1 Eos % (Auto) 1.2 L Baso % (Auto) 0.1 Gran # 4.50 Lymph # 1.8 Storey # 0.3 Eos # 0.1 Baso # 0.01 Sodium Potassium Chloride Carbon Dioxide Anion Gap BUN Creatinine Est GFR ( Amer) Est GFR (Non-Af Amer) POC Glucose (mg/dL) 127 H 196 H Random Glucose Calcium Total Bilirubin AST ALT Alkaline Phosphatase Lactate Dehydrogenase Total Protein Albumin Globulin Albumin/Globulin Ratio Thyroxine (T4) Total T3 TSH 3rd Generation Urine Color Urine Appearance Urine pH Ur Specific Carroll Urine Protein Urine Glucose (UA) Urine Ketones Urine Blood Urine Nitrate Urine Bilirubin Urine Urobilinogen Ur Leukocyte Esterase Urine RBC Urine WBC Ur Epithelial Cells Urine Bacteria Blood Type Blood Type Confirm Antibody Screen Crossmatch BBK History Checked Assessment & Plan - Assessment and Plan (Free Text) Assessment: Axillay lymphadenopathy -OR on Tues AM for lymph node bx -Will obtain consent -NPO aftermidnight on Wed night DW Dr. Sheppard <Chilo Sheppard - Last Filed: 06/17/17 09:25> Results - Vital Signs Recent Vital Signs: Last Vital Signs Temp 97.5 F L 06/16/17 12:00 Pulse 95 H 06/16/17 12:00 Resp 20 06/16/17 12:00 BP 155/75 H 06/16/17 12:00 Pulse Ox 98 06/16/17 06:00 - Labs Result Diagrams: 06/16/17 07:00 06/15/17 06:45 Labs: Laboratory Results - last 24 hr 06/16/17 06/16/17 07:47 11:14 POC Glucose (mg/dL) 103 207 H Assessment & Plan - Assessment and Plan (Free Text) Assessment: Prob Lymphoma Will get Lymph node and biopsy thyroid This consult done under my direct supervision Veronique Sheppard MD FACS
--- NOTE | 2017-06-13 16:30 | CP.PCM.PCO ---
Physician Communication Note - Physician Communication Note Physician Communication Note: L Axilla lymphadenectomy Tues(OR)if Hgb holds up
--- NOTE | 2017-06-13 19:03 | PN ---
DATE: 06/13/2017 SUBJECTIVE: The patient is a 76-year-old, seen and examined, lying in bed, seems to be comfortable. No nausea, vomiting. No diarrhea. PHYSICAL EXAMINATION VITAL SIGNS: The patient is afebrile. Pulse 88, respirations 20, blood pressure 121/58. NECK: The patient has a neck lump that is most probably goiter. She does have a left supraclavicular mass, probably matted lymph nodes. LUNGS: Bilateral fair airflow. No rhonchi or crackles. HEART: S1, S2 audible. ABDOMEN: Soft, nontender. No rebound. No guarding. EXTREMITIES: Bilateral legs, no edema. LABORATORY DATA: WBC 6.7, hemoglobin 6.4, hematocrit 20.2, and platelet of 350. Chemistry: Sodium 140, potassium 4.4, chloride 105, CO2 of 26, BUN 27, creatinine 1.3, and blood sugar of 196. TSH is 0.04. Urinalysis is unremarkable. ASSESSMENT: 1. Fever, etiology unknown. 2. Generalized lymphadenopathy, rule out lymphoma. 3. Hypertension. 4. Insulin-dependent diabetes. 5. Hyperlipidemia. PLAN: I will continue the patient on current antibiotics, that is, Rocephin and doxycycline. I discussed with Dr. Luong and Dr. Sheppard. We will get excisional biopsy to diagnose the reason for generalized lymphadenopathy. Griselda Bartholomew MD MTDD
--- NOTE | 2017-06-14 01:11 | CON ---
DATE: 06/13/2017 The patient is seen in room 372, bed 1. CHIEF COMPLAINT: Lymphadenopathy times several days duration. HISTORY OF PRESENT ILLNESS: This 76-year-old female with past medical history of hypothyroidism, diabetes mellitus, hypertension. She was admitted to the emergency room because of a right anterior and left axillary adenopathy and swelling. She states she did not have any fevers at home. No chills. She is not sure of number of days that was there and no chest pain, no abdominal pain, diarrhea or constipation. No bright red blood per rectum. No melena. PAST MEDICAL HISTORY: Significant for hypothyroidism, diabetes, hypertension. PAST SURGICAL HISTORY: Significant for thyroidectomy 4 years ago. ALLERGIES: THE PATIENT HAS NO KNOWN ALLERGIES. MEDICATIONS: At home included statin, levothyroxine, metoprolol, insulin, vitamin D. SOCIAL HISTORY: She was born in [place], [place]. She has never smoked, no drinking. No recent travel, although she has been on a cruise years ago. No exposure to tuberculosis. PHYSICAL EXAMINATION: VITAL SIGNS: Patient is in bed with temperature of 101.1, respiratory rate of 20 and heart rate of 94, blood pressure is 101/40. HEENT: Reveals significant adenopathy and mass of the neck. She also has left axillary adenopathy. SKIN: No break in the skin. No discharge. LUNGS: Clear to auscultation and percussion. HEART: Normal S1, S2. ABDOMEN: Soft, nontender. LABORATORY DATA: Reveals a white count of 9000, hemoglobin of 7, platelets of 327 with 74% granulocytosis, 24% lymphocytosis. Today's hemoglobin is down to 6. Coagulation is noted and INR of 1.23. Blood gases are reviewed with a pCO2 46 and FiO2 of 21% with pO2 of 104. Chemistries reveals the patient's sodium 140, potassium 4.4, creatinine is elevated at 1.3. The patient did have a creatinine of 1.3 on last admission on 05/02; however, prior to that, she had a creatinine of 0.8, T4 of 7, T3 is 1.0 with a TSH of 0.04 and glucose elevated at 131. The GFR of 40. LDH is normal, alk phos and LFTs are normal. Urinalysis reveals there is proteinuria in the 30 and leukocyte esterase and 20-25 wbc's with many bacteria. Blood cultures are reported to be no growth at 24 hours. The patient had a chest x-ray which shows no active pulmonary disease. Had a CT scan of the chest also, which revealed a massive adenopathy affecting visualized supraventricular lymph node chain on the left, both left axillary and right hilar and mediastinal lymph node chains incompletely visualized retroperitoneal adenopathy, retrocrural lymphadenopathy is also identified. The patient also had a CT scan of the neck which reveals profound lymphadenopathy, also appreciably old lymph node chains, base of the skull, the thoracic inlet are involved, massive thyromegaly. ASSESSMENT/PLAN: This is a 76-year-old female with obesity, BMI of 32, hypothyroidism, diabetes, hypertension, presenting with a fever of 101 and heart rate of 94. 1. Systemic inflammatory response syndrome with massive adenopathy both neck and chest and retrocrural area, must rule out underlying lymphoma with a normal LDH at this time. Will need a tissue diagnosis. RECOMMENDATIONS: Recommend CT-guided tissue diagnosis and recommend HIV test because of the anemia, haptoglobin, hepatitis profile. Blood cultures which are reportedly no growth at this time. From an Infectious Disease point of view, no indication for an antibiotic at this point with this patient with significant adenopathy and we will discontinue vancomycin, pending tissue culture for definitive diagnosis. We will check on the HIV also, although she has had numerous factors for HIV. We will follow with you. Santino Garcia MD
[2017-06-14 06:58] LABS: BASO # 0.01 K/mm3 (0.0-2.0); BASO % 0.2 % (0.0-3.0); EOS # 0.1 (0.0-0.7); EOS % 1.7 % (1.5-5.0); GRAN # 3.97 (1.4-6.5); GRAN % 60.7 % (50.0-68.0); LYMPH # 2.1 (1.2-3.4); LYMPH % 32.5 % (22.0-35.0); MEAN CELL VOLUME 89.4 fl (80.0-105.0); MEAN CORPUSCULAR HEMOGLOBIN 28.4 pg (25.0-35.0); MEAN CORPUSCULAR HGB CONC 31.8 g/dl (31.0-37.0); MEAN PLATELET VOLUME 9.4 fl (7.0-11.0); MONO # 0.3 (0.1-0.6); MONO % 4.9 % (1.0-6.0); RBC 2.36 10^6/uL (3.5-6.1); RED CELL DISTRIBUTION WIDTH 18.9 % (11.5-14.5); WHITE BLOOD COUNT 6.5 10^3/ul (4.5-11.0)
[2017-06-14 07:24] LABS: HEMOGLOBIN 6.7 g/dL (12.0-16.0)
--- NOTE | 2017-06-14 08:06 | CP.PCM.PN ---
Subjective - Date & Time of Evaluation Date of Evaluation: 06/14/17 Time of Evaluation: 07:10 - Subjective Subjective: Surgery Progress note. Dr Sheppard Patient seenand examined at bedside. no acute events overnight. No F/C. No N/V/ D. No abd pain. Still with mild tenderness to the left axilla. No new complaints. Objective - Vital Signs/Intake and Output Vital Signs (last 24 hours): Temp Pulse Resp BP Pulse Ox 98.5 F 65 18 111/54 L 100 06/14/17 06:00 06/14/17 06:00 06/14/17 06:00 06/14/17 06:00 06/14/17 06:00 Intake and Output: 06/14/17 06/14/17 06:59 18:59 Intake Total 400 Balance 400 - Medications Medications: Current Medications Acetaminophen (Tylenol 325mg Tab) 650 mg PO Q6H PRN PRN Reason: Fever >100.4 F Last Admin: 06/14/17 05:21 Dose: 650 mg Atorvastatin Calcium (Lipitor) 20 mg PO DIN [facility] Last Admin: 06/13/17 16:46 Dose: 20 mg Ceftriaxone Sodium (Rocephin 1 Gram Ivpb) 1 gm in 100 mls @ 100 mls/hr IVPB DAILY [facility] PRN Reason: Protocol Last Admin: 06/13/17 09:16 Dose: 100 mls/hr Doxycycline Hyclate 100 mg/ (Sodium Chloride) 100 mls @ 100 mls/hr IVPB Q12 [facility] PRN Reason: Protocol Last Admin: 06/13/17 22:01 Dose: 100 mls/hr Iron Sucrose 200 mg/ Sodium (Chloride) 110 mls @ 110 mls/hr IVPB ONCE ONE Stop: 06/14/17 10:59 Insulin Lispro Protam/Lispro Human (Humalog Mix 75/25) 30 units SC BID [facility] Last Admin: 06/13/17 18:04 Dose: Not Given Levothyroxine Sodium (Synthroid) 50 mcg PO DAILY [facility] Last Admin: 06/13/17 09:16 Dose: 50 mcg Losartan Potassium (Cozaar) 100 mg PO DAILY [facility] Last Admin: 06/13/17 09:16 Dose: 100 mg Metoprolol Succinate (Toprol Xl) 25 mg PO DAILY [facility] Last Admin: 06/13/17 09:14 Dose: 25 mg - Labs Labs: 06/14/17 06:00 06/13/17 06:30 PT 13.6 SECONDS (9.4-12.5) H 06/12/17 12:30 INR 1.23 (0.93-1.08) H 06/12/17 12:30 APTT 28.1 Seconds (25.1-36.5) 06/12/17 12:30 - Constitutional Appears: Well, No Acute Distress - Head Exam Head Exam: ATRAUMATIC, NORMAL INSPECTION, NORMOCEPHALIC - Eye Exam Eye Exam: EOMI - ENT Exam ENT Exam: Mucous Membranes Moist Additional comments: large midline goiter noted. Painless. No change in voice - Respiratory Exam Respiratory Exam: NORMAL BREATHING PATTERN. absent: Accessory Muscle Use, Respiratory Distress - Cardiovascular Exam Cardiovascular Exam: absent: JVD - GI/Abdominal Exam GI & Abdominal Exam: Soft. absent: Distended, Guarding, Rigid, Tenderness, Rebound - Extremities Exam Additional comments: left axillary mass: mobile hard mass noted. mild tenderness to palpation. - Neurological Exam Neurological Exam: Alert, Awake, Oriented x3 - Psychiatric Exam Psychiatric exam: Normal Affect, Normal Mood - Skin Skin Exam: Dry, Intact, Normal Color, Warm Assessment and Plan - Assessment and Plan (Free Text) Assessment: 76yo F with Left Axillary Lymphadenopathy - Possible OR on , 06/15 for lymph node bx - NPO after mn on 06/14 - Medical Maximization as per Primary. - Monitor H/H Further recs as per Dr. Silver Malik PGY1 surgery pager: [phone]
[2017-06-14] MEDS: cefTRIAXone 1 gm 1 GM/100 ML BAG IVPB SCH (10:40)
[2017-06-14] MEDS: Metoprolol Succinate 25 mg XL Tab PO SCH (10:40)
[2017-06-14] MEDS: Insulin Lispro (humaLOG) MIX 75/25(10 ml) SC SCH ×2 (10:41→18:45)
[2017-06-14] MEDS: Levothyroxine 50 MCG TAB PO SCH (11:12)
[2017-06-14 13:35] LABS: HEPATITIS B CORE AB Negative (NEGATIVE)
[2017-06-14 13:47] LABS: HEPATITIS C ANTIBODY Negative (NEGATIVE)
--- NOTE | 2017-06-14 19:39 | PN ---
DATE: 06/14/2017 SUBJECTIVE: The patient is 76-year-old female, seen and examined, sitting in chair, seems to be comfortable. Her left axillary lump seems to be les painful. No nausea, vomiting. No diarrhea. No fever. No chills. PHYSICAL EXAMINATION VITAL SIGNS: She is afebrile. Pulse 93, respirations 20, blood pressure 139/63. LUNGS: Bilateral fair airflow. No rhonchi or crackles. HEART: S1, S2 audible. ABDOMEN: Soft, nontender. No rebound. No guarding. NEUROLOGIC: She is awake, alert, oriented, communicative. EXTREMITIES: Bilateral leg, no edema. LABORATORY DATA: WBC is 6.5, hemoglobin 6.7, hematocrit 21, platelets of 416. Chemistry: Blood sugar of 99. Urinalysis shows pyuria. Hepatitis suspect antibodies are positive. Blood culture and urine cultures are negative. IMPRESSION: 1. Fever, etiology still unclear. The patient has generalized lymphadenopathy, rule out underlying malignancy. 2. Symptomatic anemia. The patient has been given iron infusion. She is Latter day. Could not get blood transfusions. I discussed with Dr. Petty. She is scheduled to have biopsy done tomorrow. ASSESSMENT AND PLAN: 1. Generalized lymphadenopathy, highly suspicious for lymphoma. 2. Insulin-dependent diabetes. 3. Hypertension. 4. Hyperlipidemia. 5. Anemia. 6. Latter day. PLAN: We will continue the patient on current medications. The patient is scheduled for biopsy in a year. Griselda Bartholomew MD MTDJoe
--- NOTE | 2017-06-14 22:59 | PN ---
DATE: 06/14/2017 SUBJECTIVE: The patient is in bed, in no acute distress, nontoxic. PHYSICAL EXAMINATION: VITAL SIGNS: Temperature is 98, blood pressure is 130/60, respiratory rate of 20 and heart rate of 93. HEENT: Unremarkable. NECK: Supple. LUNGS: Decreased breath sounds. HEART: Normal S1 and S2. ABDOMEN: Soft. LABORATORY DATA: Reveals white count of 6.5, hemoglobin of 6, and platelets of 416. BUN of 27 and creatinine of 1.3. Blood cultures are negative. Urine cultures are negative. ASSESSMENT AND PLAN: This is a 76-year-old female with obesity body mass index of 32 with hypothyroidism, diabetes, hypertension presenting with tachycardia and fever with systemic inflammatory response syndrome, massive adenopathy, awaiting for tissue diagnosis Dr. Chilo Sheppard. No communication report regarding lymph node biopsy and lymphadenectomy for tomorrow is noted. Thus far the blood cultures are no growth. Urine cultures are negative. Review of orders reveals the patient to be on ceftriaxone. We will follow with you. Bordetella DNA for disease and antibodies both IgM and IgG is ordered. We will follow with you. Santino Garcia MD
[2017-06-15 07:11] LABS: MEAN CELL VOLUME 88.5 fl (80.0-105.0); MEAN CORPUSCULAR HEMOGLOBIN 28.4 pg (25.0-35.0); MEAN CORPUSCULAR HGB CONC 32.1 g/dl (31.0-37.0); MEAN PLATELET VOLUME 9.5 fl (7.0-11.0); RBC 2.43 10^6/uL (3.5-6.1); RED CELL DISTRIBUTION WIDTH 18.4 % (11.5-14.5); WHITE BLOOD COUNT 5.6 10^3/ul (4.5-11.0)
[2017-06-15 07:30] LABS: ALB/GLOB RATIO 1.1 (1.1-1.8); ALBUMIN 3.8 g/dL (3.0-4.8); CALCIUM 9.5 mg/dL (8.4-10.5)
[2017-06-15 07:43] LABS: HEMOGLOBIN 6.9 g/dL (12.0-16.0)
[2017-06-15] MEDS: Insulin Lispro (humaLOG) MIX 75/25(10 ml) SC SCH ×2 (09:03→17:03)
[2017-06-15] MEDS: Metoprolol Succinate 25 mg XL Tab PO SCH (09:42)
[2017-06-15] MEDS ORDERED: Midazolam 2 MG/2 ML VIAL ONE (10:31)
[2017-06-15] MEDS ORDERED: Bupivacaine 0.5% Inj(30mL) ONE (10:45)
[2017-06-15] MEDS ORDERED: Sevoflurane - Inhalation Anesthetic Liq (250 ml) ONE (10:45)
[2017-06-15] MEDS ORDERED: HYDROmorphone 0.5 mg/0.5 ml ISec IVP PRN (11:51)
[2017-06-15] MEDS ORDERED: Lactated Ringer's 1,000 ML IV SCH (12:00)
--- NOTE | 2017-06-15 12:18 | PCM.SURG1 ---
Surgeon's Initial Post Op Note - Surgeon's Notes Surgeon: Dr. Sheppard Lighting Fixtures Decorator: Dr. Walker PGY1 Type of Anesthesia: Local Pre-Operative Diagnosis: Diffuse lymphadenopathy. Goiter Operative Findings: red flesh colored left supraclavicular lymph node. for detiled of findings refer to Op note Post-Operative Diagnosis: as above Operation Performed: left supraclavicular excsional lymph node biopsy. thyroid core needle biopsy Specimen/Specimens Removed: left supraclavicular lymph node. thyroid core needle Estimated Blood Loss: EBL {In ML}: 3 Blood Products Given: N/A Post-Op Condition: Good Date of Surgery/Procedure: 06/15/17 Time of Surgery/Procedure: 11:30
[2017-06-15] MEDS: Levothyroxine 50 MCG TAB PO SCH (12:41)
[2017-06-15] MEDS: cefTRIAXone 1 gm 1 GM/100 ML BAG IVPB SCH (17:03)
[2017-06-15 18:03] LABS: THYROGLOBULIN 141.9 ng/mL (2.8-40.9)
--- NOTE | 2017-06-15 19:00 | PN ---
DATE: 06/15/2017 SUBJECTIVE: The patient is seen earlier this morning, in no acute distress, nontoxic. PHYSICAL EXAMINATION: VITAL SIGNS: Temperature is 99, blood pressure is 120/60, respiratory rate of 16. HEENT: Unremarkable. NECK: Supple. LUNGS: Decreased breath sounds. HEART: Normal S1 and S2. ABDOMEN: Soft. LABORATORY EXAMINATION: Reveals white count of 5.6, hemoglobin of 6.9, and platelets of 457. Chemistries reveal the patient has a BUN of 24 and creatinine of 1.1. Urinalysis is noted. Hepatitis is noted. Microbiology reveals the patient's blood cultures are negative. Urine cultures are negative. The patient is for lymph node biopsy resection today. ASSESSMENT AND PLAN: This is a 76-year-old female, seen earlier this morning in room 372, bed 1 with obesity, body mass index of 32, hypothyroidism, diabetes, hypertension, presenting with massive adenopathy. The patient for lymph node biopsy and resection today. Pathology should be sent for AFB smears and cultures, fungal smears and cultures, Gram stain and pathology, currently on doxycycline. Santino Garcia MD
--- NOTE | 2017-06-15 22:28 | PN ---
DATE: SUBJECTIVE: The patient is a 76-year-old, seen and examined in recovery, doing well. No nausea or vomiting. No diarrhea. No fever. No chills. Eating and tolerating. OBJECTIVE: VITAL SIGNS: She is afebrile, pulse 90, respirations 20, and blood pressure 126/66. LUNGS: Bilateral fair airflow. No rhonchi or crackles. HEART: S1 and S2 audible. ABDOMEN: Soft, obese. Nontender. No rebound. No guarding NECK: She has a large goiter lateral aspect of neck and she has biopsy done from the left supraclavicular lump. LABORATORY DATA: WBC is 5.6, hemoglobin 6.9, hematocrit 21.5, and platelets of 457. Chemistry, sodium 144, potassium 4.2, chloride 108, CO2 of 26, BUN 24, and creatinine 1.1. Blood sugar is 161. Blood cultures and urine cultures are negative. ASSESSMENT AND PLAN: Fever, probably secondary to viral syndrome, no focus of infection so far except generalized lymphadenopathy. 1. Generalized lymphadenopathy, probably consistent with lymphoma. 2. Goiter. 3. Hypothyroidism. 4. Insulin-dependent diabetes. 5. Hypertension. PLAN: The patient is to have biopsy done. If the patient remains stable, we will make discharge plan for tomorrow and send her home on p.o. antibiotics. Griselda Bartholomew MD
--- NOTE | 2017-06-15 23:33 | CON ---
DATE: 06/15/2017 REASON FOR CONSULTATION: Generalized lymphadenopathy, thyroid gland enlargement. HISTORY OF PRESENT ILLNESS: Ms. Lui is a 76-year-old female admitted to hospital with shortness of breath. She noted lumps in the neck and left axilla. She is stating that lump on the left side of neck has been there for 1 year. CAT scan of the neck and chest showed massive lymphadenopathy, 9 cm supraclavicular mass half-matted lymph node. Both sided thyroid gland enlarged extending into the chest. She also has retroperitoneal lymphadenopathy noted on the CAT scan of the chest. She underwent core biopsy of the axillary lymph node and left thyroid gland by Dr. Sheppard. She is Roman Catholic. Her hemoglobin has been dropping the lowest at 6.2. Iron study showed severe iron deficiency. She received 2 doses of IV iron, 200 mg, hemoglobin did not improve. Today's hemoglobin is 6.9. She has a history of dizziness, dizzy spells at home. Fatigue, shortness of breath on exertion. Denies any weight loss. No obese symptoms. PAST MEDICAL HISTORY: Insulin-dependent diabetes mellitus, hypertension, hyperlipidemia, hypothyroidism. ALLERGIES: NO KNOWN DRUG ALLERGIES. HOME MEDICATIONS: Insulin, atorvastatin, levothyroxine, metoprolol, vitamin D. FAMILY HISTORY: Noncontributory. SOCIAL HISTORY: She lives with her son at home. PERSONAL HISTORY: Nonsmoker. No history of alcohol abuse. REVIEW OF SYSTEMS: As per HPI. Rest of 12-point review of systems reviewed negative. PHYSICAL EXAMINATION: GENERAL: Awake, alert and oriented, communicative. VITAL SIGNS: Temperature 99.6. Respiratory rate 20 per minute, blood pressure 130/60. HEENT: Pallor positive. NECK: Massive lymphadenopathy on left side of the neck, left axillary lymphadenopathy. CHEST: Air entry present, equal bilaterally. No added sounds. CARDIOVASCULAR: S1 and S2 normal. No murmur. No gallop. ABDOMEN: Soft and nontender. No hepatosplenomegaly. EXTREMITIES: No edema. NEUROLOGIC: Awake, alert and oriented x3. No focal, sensory, or motor deficit. LABORATORY DATA: White count 5.6, hemoglobin 6.9, hematocrit 21.5, platelet count 457, MCV 88. Iron 25, percentage saturation 10%, creatinine 1.1. Sodium 144, potassium 4.2. Thyroglobulin 141.9, TSH 0.04, T4 is 7, T3 is 1.03. LFTs within normal limits. CURRENT MEDICATIONS: Tylenol 650 mg q. 6 hours p.r.n., Lipitor 20 mg daily, ceftriaxone, Dilaudid p.r.n., insulin, Synthroid 50 mcg daily, Cozaar 100 mg daily, metoprolol 25 mg daily. ASSESSMENT: 1. Massive lymphadenopathy in the neck, left axilla, retroperitoneal suspicious for lymphoma. 2. Massive thyromegaly generalized lymphadenopathy, bulky lymphadenopathy. 3. Severe anemia. 4. Generalized weakness. 5. Severe iron deficiency. PLAN: Core biopsy done left axilla and left thyroid gland. Thyroglobulin is elevated at 141. Differential diagnosis include lymphoma, HIV serology, hepatitis serology orders. Results pending. Severe anemia status post 2 doses of IV iron. I had a lengthy discussion with daughter and the patient. She has life threatening condition with severe anemia. I discussed with the daughter that she might have a cardiac compromise with that low hemoglobin. She is already symptomatic with dizziness and shortness of breath. The daughter states she will talk to other sibling and get back to us regarding blood transfusion. The patient said her daughter will decide regarding blood transfusion. I also discussed that biopsy results will take few days maybe early next week. In the interim, we have to provide the supportive care. She is currently on IV antibiotics for fever. ID consultation by Dr. Garcia, reviewed. We will continue to monitor hemoglobin, hematocrit closely. Family and the patient has persistently refuse blood transfusion. We are still awaiting family and the patient's consent for blood transfusion and discussed with Dr. Bartholomew. Ira Luong MD
[2017-06-16 06:55] VITALS: O2SAT 98
[2017-06-16 07:42] LABS: BASO # 0.03 K/mm3 (0.0-2.0); BASO % 0.5 % (0.0-3.0); EOS # 0.1 (0.0-0.7); EOS % 1.3 % (1.5-5.0); GRAN # 3.26 (1.4-6.5); GRAN % 53.9 % (50.0-68.0); LYMPH # 2.4 (1.2-3.4); MEAN CELL VOLUME 88.2 fl (80.0-105.0); MEAN CORPUSCULAR HEMOGLOBIN 28.5 pg (25.0-35.0); MEAN CORPUSCULAR HGB CONC 32.3 g/dl (31.0-37.0); MEAN PLATELET VOLUME 8.8 fl (7.0-11.0); MONO # 0.3 (0.1-0.6); MONO % 4.3 % (1.0-6.0); RBC 2.46 10^6/uL (3.5-6.1); RED CELL DISTRIBUTION WIDTH 18.4 % (11.5-14.5); WHITE BLOOD COUNT 6.1 10^3/ul (4.5-11.0)
[2017-06-16] MEDS: Insulin Lispro (humaLOG) MIX 75/25(10 ml) SC SCH (09:32)
[2017-06-16] MEDS: Metoprolol Succinate 25 mg XL Tab PO SCH (09:38)
[2017-06-16] MEDS: Levothyroxine 50 MCG TAB PO SCH (09:38)
[2017-06-16 12:17] VITALS: BP 155/75; PULSE 95; RESP 20; TEMP 97.5
--- NOTE | 2017-06-17 05:20 | DS ---
HISTORY OF PRESENT ILLNESS: The patient is a 76-year-old, seen and examined, sitting in chair, seems to be comfortable. No nausea, vomiting, or diarrhea. PHYSICAL EXAMINATION: VITAL SIGNS: She is afebrile, pulse 95, respirations 20, and blood pressure 155/74. LUNGS: Bilateral good airflow. No rhonchi or crackles. HEART: S1 and S2 audible. ABDOMEN: Soft, obese, nontender. No rebound. No guarding. NEUROLOGIC: The patient is awake, alert, oriented. Able to communicate and ambulatory. LABORATORY DATA: WBC 6.1, hemoglobin 7.0, hematocrit 21.7, and platelets 460. Chemistry: Sodium 144, potassium 4.2, chloride 108, CO2 of 26, BUN 24, creatinine 1.1, and blood sugar of 207. ASSESSMENT AND PLAN: 1. Status post high grade fever, cultures are negative, probably viral syndrome. 2. Generalized lymphadenopathy. 3. Head biopsy done showing chronic lymphocytic leukemia. 4. Non-insulin dependent diabetes. 5. Hypertension. 6. Hyperlipidemia. PLAN: The patient is being discharged home today. She is given prescription of doxycycline 100 mg twice a day, and Vicodin as needed. She will follow up with Dr. Luong. She will follow up with Dr. Petty for removal of makenna. Griselda Bartholomew MD
--- NOTE | 2017-06-17 08:20 | PN ---
DATE: 06/16/2017 SUBJECTIVE: The patient is seen early this morning in no acute distress, nontoxic,. No fevers. PHYSICAL EXAMINATION VITAL SIGNS: Temperature is 98, blood pressure is 150/70, respiratory rate of 18, and heart rate of 100. HEENT: Unremarkable. NECK: Supple. LUNGS: Have decreased breath sounds. HEART: Normal S1, S2. ABDOMEN: Soft and nontender. LABORATORY EXAMINATION: Reveals a white count of 6.1, hemoglobin of 7 and platelets of 460. BUN of 24 and creatinine of 1.1. Urinalysis is noted. HIV is negative. Hepatitis profile is negative. Hepatitis B surface antibody is positive. Microbiology reveals the blood cultures are negative. Urine culture is negative. Pathology is pending. OR cultures are pending. ASSESSMENT AND PLAN: A 76-year-old female, seen earlier this morning with obesity, BMI of 32, hypothyroidism, diabetes, hypertension, presenting with massive adenopathy, status post lymph node resection, waiting for OR cultures, AFB smears, AFB cultures, fungal smears, fungal cultures. workup pending. Currently on doxycycline and we will follow with you. Santino Garcia MD
--- NOTE | 2017-06-19 09:13 | CP.PCM.PCO ---
Physician Communication Note - Physician Communication Note Physician Communication Note: Path:Lymphoma-pt to f/u office-surgery/Hem-Onc
[2017-06-23 13:07] LABS: BARTONELLA HENSELAE DNA NOT DETECTED; SOURCE BLOOD
--- NOTE | 2017-06-23 21:48 | OP ---
PROCEDURE DATE: 06/15/2017 ADMISSION ROOM: 372, bed 1. SURGEON: Chilo Sheppard MD. EQUITY DIRECTOR: Jennifer Walker DO, PGY-1. SERVICE CENTER APPRAISER: Dung Leal MD. ANESTHESIA: MAC - local. PREOPERATIVE DIAGNOSES: 1. Diffuse lymphadenopathy. 2. Severe anemia. 3. 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 POSTOPERATIVE DIAGNOSES: 1. Diffuse lymphadenopathy. 2. Severe anemia. 3. 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 PATHOLOGY: Pending. PROCEDURES PERFOREMED ON 06/15/2017: 1. Left supraclavicular lymphadenectomy. 2. Left thyroid core biopsy. OPERATIVE INDICATION: Patient is a 76-year-old Judaism female with admission hemoglobin down to 4 and refusal of blood products due to her samaritan belief (Jehovah Witness). Her iron level is below 10 and with the presence of the diffuse lymphadenopathy, it is thought that she might have a lymphoma with the secondary associated anemia. Extensive discussion was held with the patient and she agrees to removal of the lymph node that is more symptomatic over her left clavicle and if this is not possible, removal of the one in the left axilla. She has been reluctant to undergo any treatments for any of her problems and has been limiting our discussion with her family regarding her thyroid condition; however, we did describe her thyroid as being so large that it is squashing her windpipe (trachea) and pushing it over to the right. She has agreed to core biopsy at this time so that we can further treat this and she said as long as she does not feel anything, she is happy with everything. Risks, benefits, alternatives of her anticipated outcomes were discussed with the patient and she signed an informed consent. OPERATIVE NOTE: Patient was brought to the operating room, identified by her wrist band, underwent timeout procedure, and was placed on the table in a semi-Fallon's supine position. Following light intravenous sedation and oxygenation monitoring by the anesthesiologist (BARRON), the neck and left shoulder and anterior chest were prepped with Hibiclens and the patient was aseptically draped. Infiltration over the left supraclavicular mass was employed and further infiltration was carried on as the dissection was carried on below the platysma and subcutaneous tissues. Hemostasis was contained with electrocoagulating cautery and the lesion was fully brought up into the incision and hemostasis contained with a Mis clamp and 2-0 Chromic catgut ligature of the efferent pedicle. The specimen was placed in a saline-soaked sponge and submitted to the lab for flow cytometry and further processing for permanent sections. Hemostasis was reconfirmed. The wound was closed in layers using 3-0 Polysorb for the subcutaneous and subcuticular closure with the platysma and 4-0 Monocryl for the subcuticular skin with multiple skin makenna. An 8-Latvian drain is placed into the incision and stapled to the dressing and will be removed on the first postoperative day to facilitate accumulation of any fluids that may occur. Attention was drawn to the thyroid, which was visualized with the ultrasound device and multiple core biopsies were taken of the left side of the thyroid and submitted to pathology for permanent section analysis. Pressure was maintained for 5 minutes. Dry dressings were applied. The patient was awakened and transported to the recovery room in a satisfactory condition. Sponge, instrument, and suture count were verified as correct at the end of the procedure. Estimated blood loss during this procedure was less than 10 mL of blood. This dictation will be electronically signed without being read. Chilo Sheppard MD
== END 2017-06-16 14:24 | disposition home or self-care (01) | DRG 824 ==
LOC: ED 11:12 → ERH 15:35 → 3RSO 18:01
PROVIDERS: ADMIT Internal Medicine; ATTEND Internal Medicine
PROC: 0GBG0ZX Excision of Left Thyroid Gland Lobe, Open Approach, Diagnostic (ICD-10-PCS; 2017-06-15)
PROC: BW4FZZZ Ultrasonography of Neck (ICD-10-PCS; 2017-06-15)
PROC: 07B20ZZ Excision of Left Neck Lymphatic, Open Approach (ICD-10-PCS; principal; 2017-06-15 10:30)
DX: C91.10 Chronic lymphocytic leukemia of B-cell type not having achieved remission (principal); C85.81 Other specified types of non-Hodgkin lymphoma, lymph nodes of head, face, and neck; R65.10 Systemic inflammatory response syndrome (SIRS) of non-infectious origin without acute organ dysfunction; J39.8 Other specified diseases of upper respiratory tract; D64.9 Anemia, unspecified; E11.9 Type 2 diabetes mellitus without complications; B34.9 Viral infection, unspecified; E03.9 Hypothyroidism, unspecified; E61.1 Iron deficiency; E78.5 Hyperlipidemia, unspecified; I10 Essential (primary) hypertension; E66.9 Obesity, unspecified; Z68.32 Body mass index [BMI] 32.0-32.9, adult; Z79.4 Long term (current) use of insulin; Z86.73 Personal history of transient ischemic attack (TIA), and cerebral infarction without residual deficits; Z90.710 Acquired absence of both cervix and uterus; R40.2412 Glasgow coma scale score 13-15, at arrival to emergency department; E01.0 Iodine-deficiency related diffuse (endemic) goiter

== ENCOUNTER 2017-07-06 12:06 | Day surgery (SDC) | payer MEDICARE ==
[2017-07-02 15:12] VITALS: BMI 28.0
[2017-07-06 12:47] LABS: BASO # 0.01 K/mm3 (0.0-2.0); BASO % 0.2 % (0.0-3.0); EOS # 0.1 (0.0-0.7); EOS % 0.8 % (1.5-5.0); GRAN # 2.71 (1.4-6.5); HEMOGLOBIN 8.3 g/dL (12.0-16.0); LYMPH # 3.1 (1.2-3.4); LYMPH % 48.4 % (22.0-35.0); MEAN CORPUSCULAR HEMOGLOBIN 28.6 pg (25.0-35.0); MEAN CORPUSCULAR HGB CONC 31.8 g/dl (31.0-37.0); MEAN PLATELET VOLUME 9.1 fl (7.0-11.0); MONO # 0.5 (0.1-0.6); MONO % 7.6 % (1.0-6.0); RBC 2.9 10^6/uL (3.5-6.1); RED CELL DISTRIBUTION WIDTH 19.8 % (11.5-14.5); WHITE BLOOD COUNT 6.3 10^3/ul (4.5-11.0)
[2017-07-06] MEDS ORDERED: Lidocaine 2% Inj (20ml) ONE ×2 (12:54→14:00)
[2017-07-06] MEDS ORDERED: Midazolam 2 MG/2 ML VIAL ONE ×2 (12:55→14:01)
[2017-07-06] MEDS ORDERED: HEPARIN SODIUM/NS 2,000 ML IV ONE (12:55)
[2017-07-06 13:03] LABS: INR 1.08 (0.93-1.08); PARTIAL THROMBOPLASTIN TIME 28.2 Seconds (25.1-36.5); PROTHROMBIN TIME 12.4 SECONDS (9.4-12.5)
[2017-07-06 13:06] LABS: CALCIUM 9.8 mg/dL (8.4-10.5)
[2017-07-06] MEDS ORDERED: Oxycodone/Acetaminophen 5/325 mg Tab PO PRN (15:12)
[2017-07-06] MEDS ORDERED: Sodium Chloride 0.45% 1,000 ML IV SCH (15:15)
[2017-07-06 15:35] VITALS: RESP 18; TEMP 97.9
[2017-07-06 16:08] VITALS: BP 145/58; PULSE 98; O2SAT 98
--- NOTE | 2017-07-06 17:31 | VASCULAR ---
PROCEDURE: Ultrasound and fluoroscopic right internal jugular venous access port. CLINICAL HISTORY: Lymphoma.Venous port for chemotherapy. PHYSICIAN(S): Peter Estrada M.D. TECHNIQUE: The relative risks and indications of the procedure were explained to the patient and consent obtained. The patient was placed supine on the arteriogram table and the right neck and chest prepped and draped in the usual sterile fashion. Conscious sedation monitoring was provided throughout the procedure by a nurse. Antibiotics were given prior to the procedure. Under direct ultrasound guidance, the right internal jugular vein was punctured with a micro-puncture set. A 0.035 angled Glidewire was advanced into the IVC. A 4 cm incision was made below the right clavicle and the pocket blunted dissected. A 8 Gibraltarian single-lumen catheter, 22 cm long, was advanced to the SVC/RA junction. The catheter was trimmed and attached to the port. The port aspirates and injects easily. The port was placed in the pocket and closed in 2 layers. The patient tolerated the procedure well. IMPRESSION: Ultrasound and fluoroscopically placed right internal jugular venous access port.
== END 2017-07-06 16:25 | disposition home or self-care (01) ==
LOC: SDSVAS 12:06
PROVIDERS: ATTEND Radiology Vascular & Interventional Radiology
DX: C85.90 Non-Hodgkin lymphoma, unspecified, unspecified site (principal); I10 Essential (primary) hypertension; E11.9 Type 2 diabetes mellitus without complications; E03.9 Hypothyroidism, unspecified
CPT/HCPCS: 36415; 36561; 77001; 80048; 85025; 85610; 85730; 99152; C1769; C1788; J0690; J1644; J2250; J2405; J3010; J7030

== ENCOUNTER 2017-12-29 10:01 | Day surgery (SDC) | payer MEDICARE, OTHER ==
[2017-12-29 10:52] VITALS: RESP 20; TEMP 98.4
[2017-12-29] MEDS ORDERED: Lidocaine 1% Inj (20ml) ONE (10:54)
[2017-12-29 11:38] VITALS: BMI 27.4
[2017-12-29] MEDS ORDERED: Lactated Ringer's 1,000 ML IV SCH (11:45)
[2017-12-29 11:50] VITALS: BP 148/62; PULSE 80; O2SAT 98
--- NOTE | 2017-12-29 12:37 | HP ---
DATE OF EXAM: 12/29/2017 HISTORY OF PRESENT ILLNESS: Ms. Lui is a 77-year-old female, admitted to outpatient surgery for bone marrow aspiration biopsy. She has stage IV CLL, completed chemotherapy with bendamustine and Rituxan. Bone marrow was scheduled to assess the status of CLL. PAST MEDICAL HISTORY: CLL, hypothyroidism, nodular goiter. PAST SURGICAL HISTORY: Port placement, biopsy of the lymph nodes. ALLERGIES: SULFA. REVIEW OF SYSTEMS: As per HPI. Rest of 12-point review of systems reviewed negative. FAMILY HISTORY: Noncontributory. SOCIAL HISTORY: Lives at home. PERSONAL HISTORY: Ex-smoker. PHYSICAL EXAMINATION: GENERAL: Comfortable in bed, in no acute distress. VITAL SIGNS: Temperature 98.7, heart rate 80 per minute, blood pressure 120/70, oxygen saturation 98% on room air. NECK: Large goiter present, both sides. CHEST: Air entry present and equal bilateral. No added sound. CARDIOVASCULAR: S1 and S2 normal. No murmur. No gallop. ABDOMEN: Soft, nontender. No hepatosplenomegaly. EXTREMITY: No edema. NITROGLYCERIN SUPERVISOR: Alert and oriented x3. No focal sensorimotor deficit. ASSESSMENT: 1. Stage IV chronic lymphocytic leukemia. 2. Bone marrow aspiration biopsy. PLAN: Bone marrow aspiration biopsy attempted. Skin anesthetized with 1% lidocaine. She did not tolerate even the skin local anesthesia. 0.5 mg Ativan IV given. Local anesthesia tried again, but she did not tolerate the local injection. Procedure was aborted. She was given IV fluid 500 mL. Daughter informed about the procedure, bone marrow aspiration biopsy, will be scheduled under conscious sedation at a later date. Orders given to be discharged when she is able to recover from Ativan. Home medication, Tylenol 650 every 6 hours p.r.n. for back pain. Sterile dressing done at the skin puncture site on the left iliac crest. Vitals stable. Discharge instructions given. Ira Luong MD MTDD
--- NOTE | 2017-12-29 19:57 | CARD ---
APPROVED REPORT Date of service: 12/29/2017 EKG Measurement Heart [id number] <Conclusion> Normal sinus rhythm Minimal voltage criteria for LVH, may be normal variant Septal infarct, age undetermined Abnormal ECG
== END 2017-12-29 12:35 | disposition home or self-care (01) ==
LOC: SDS 10:01 → OPSURG 10:01
PROVIDERS: ATTEND Internal Medicine Medical Oncology
DX: C91.10 Chronic lymphocytic leukemia of B-cell type not having achieved remission (principal); Z53.09 Procedure and treatment not carried out because of other contraindication; E04.9 Nontoxic goiter, unspecified; Z88.2 Allergy status to sulfonamides; Z87.891 Personal history of nicotine dependence
CPT/HCPCS: 38221; 93005; J2060; J7120

== ENCOUNTER 2017-12-31 10:31 | Day surgery (SDC) | payer MEDICARE, OTHER ==
[2017-12-31] MEDS ORDERED: Lactated Ringer's 1,000 ML IV SCH (12:00)
[2017-12-31] MEDS ORDERED: Midazolam 2 MG/2 ML VIAL ONE (12:02)
[2017-12-31] MEDS ORDERED: Propofol 10 mg/ml Inj (20 ML) ONE (12:02)
--- NOTE | 2018-01-06 00:39 | PROCN ---
DATE: 12/31/2017 PROCEDURES: 1. Bone marrow aspiration. 2. Bone marrow biopsy. INDICATION FOR PROCEDURE: Chronic lymphocytic leukemia, status post treatment. DESCRIPTION OF PROCEDURE: The patient was laid in left lateral position. Conscious sedation given by the infectious waste technician. Local anesthesia given by lidocaine 1%. Under aseptic condition, cleaning and draping done. Bone marrow aspiration and biopsy performed. The patient tolerated the procedure well. Samples sent to [facility] for evaluation. Discharge instructions given once recovered from anesthesia. Ira Luong MD
--- NOTE | 2018-01-06 00:42 | HP ---
DATE OF EXAM: 12/31/2017HISTORY OF PRESENT ILLNESS: Ms. Lui is a 77-year-old female, admitted to [facility] for bone marrow aspiration and biopsy under conscious sedation. She has stage IV CLL and completed 6 cycles of chemotherapy with bendamustine and Rituxan. PAST MEDICAL HISTORY: CLL, hypothyroidism, nodular goiter. PAST SURGICAL HISTORY: Port placement, lymph nodes biopsy. ALLERGIES: SULFA. REVIEW OF SYSTEMS: As per HPI. Rest of 12-point review of systems reviewed negative. FAMILY HISTORY: Noncontributory. SOCIAL HISTORY: Lives at home with daughter. PERSONAL HISTORY: Ex-smoker. PHYSICAL EXAMINATION: GENERAL: Comfortable in bed, in no acute distress. VITAL SIGNS: Temperature 98.7, heart rate 80 per minute, respiratory rate 18 per minute. NECK: No lymphadenopathy. Large thyroid goiter present in both nodes. CHEST: Air entry present, equal bilateral. No added sound. CARDIOVASCULAR: S1 and S2 normal. No murmur. No gallop. ABDOMEN: Soft, nontender. No hepatosplenomegaly. EXTREMITY: No edema. CENTRAL NERVOUS SYSTEM: Alert and oriented x3. LABORATORY DATA: Reviewed. ASSESSMENT: 1. Stage IV chronic lymphocytic leukemia status post treatment. 2. Hypothyroidism. 3. Nodular goiter. PLAN: Bone marrow aspiration biopsy done under conscious sedation, sample sent for for evaluation and she will be discharged once recovered from anesthesia. Follow up in office in 1 week. Ira Luong MD
== END 2017-12-31 14:35 | disposition home or self-care (01) ==
LOC: OR 10:31 → SDS 10:31
PROVIDERS: ATTEND Internal Medicine Medical Oncology
DX: C91.10 Chronic lymphocytic leukemia of B-cell type not having achieved remission (principal); E03.9 Hypothyroidism, unspecified; E04.9 Nontoxic goiter, unspecified; Z88.2 Allergy status to sulfonamides; Z87.891 Personal history of nicotine dependence; Z92.21 Personal history of antineoplastic chemotherapy
CPT/HCPCS: 38222; 82948; J1642; J2001; J2250; J2704; J3010; J7120

== ENCOUNTER 2018-04-19 12:23 | Observation (INO) | payer MEDICARE, OTHER ==
--- NOTE | 2018-04-19 13:04 | ED PDOC ---
Arrival/HPI - General Time Seen by Provider: 04/19/18 12:24 Historian: Patient - History of Present Illness Narrative History of Present Illness (Text): 04/19/18 13:04 77 year old female, whose past medical history includes CLL, hypothyroidism, diabetes, nodular goiter and hypertension, presents to the Emergency Department complaining of dizziness/lightheadedness since this morning. Patient describes the sensation of room-spinning consistent with past symptoms of vertigo experienced years ago. Patient denies ay other associated somatic complaints. Patient denies any fever, chills, nausea, vomiting, diarrhea, abdominal pain, chest pain, shortness of breath, cough, headache, neck pain, back pain, or any other complaints. PMD: Dr. Bartholomew Time/Duration: 1-3 hours Symptom Onset: Gradual Symptom Course: Unchanged Activities at Onset: Light Context: Home Past Medical History - Provider Review Nursing Documentation Reviewed: Yes - Infectious Disease Hx of Infectious Diseases: None - Cardiac Hx Pacemaker: No - Pulmonary Hx Respiratory Disorders: No - Neurological Hx Paralysis: No - HEENT Hx HEENT Disorder: No - Renal Hx Renal Disorder: No - Endocrine/Metabolic Hx Endocrine Disorders: Yes Hx Diabetes Mellitus Type 2: Yes Hx Hypothyroidism: Yes - Hematological/Oncological Hx Blood Transfusions: No (JEHOVAH WITNESS) Hx Blood Transfusion Reaction: No - Integumentary Hx Dermatological Disorder: Yes Other/Comment: 06-12-17 2 LARGE MASS UNDER HER RIGHT ANT. LOWER PORTION OF NECK,AND ARMPIT.ALSO LEFT AXILLA. - Musculoskeletal/Rheumatological Hx Musculoskeletal Disorders: Yes - Genitourinary/Gynecological Hx Genitourinary Disorders: Yes (HYSTERECTOMY) - Psychiatric Hx Emotional Abuse: No Hx Physical Abuse: No Hx Substance Use: No - Anesthesia Hx Anesthesia Reactions: No Hx Malignant Hyperthermia: No - Suicidal Assessment Feels Threatened In Home Enviroment: No Family/Social History - Physician Review Nursing Documentation Reviewed: Yes Family/Social History: Unknown Family HX Smoking Status: Never Smoked Hx Alcohol Use: No Hx Substance Use: No Hx Substance Use Treatment: No Allergies/Home Meds Allergies/Adverse Reactions: Allergies No Known Allergies Allergy (Verified 06/12/17 20:02) Home Medications: Home Meds Medication Instructions Recorded Confirmed Insulin Aspart Prot/Insuln Asp 30 units SC BID PRN 12/27/11 12/31/17 [Novolog Mix 70/30 70 U/ml-30 U/ml 10 ml] RX: Irbesartan/Hydrochlorothiazide 1 tab PO DAILY 06/12/17 12/31/17 [Avalide 300-12.5 mg Tablet] RX: Levothyroxine [Synthroid] 25 mcg PO DAILY 06/12/17 12/31/17 RX: Metoprolol Succinate XL 1 tab PO DAILY 06/12/17 12/31/17 [Toprol XL] Aspirin [Adult Low Dose Aspirin EC] 81 mg PO DAILY 12/29/17 12/31/17 Magnesium Oxide [Mag-Oxide 241.3 mg PO DAILY 12/29/17 12/31/17 Magnesium] RX: Pravastatin Sodium [Pravachol] 1 tab PO DAILY 12/29/17 12/31/17 Valacyclovir HCl [Valacyclovir] 1 tab PO DAILY 12/29/17 12/31/17 Calcium Citrate/Vitamin D3 1 tab PO DAILY 12/31/17 12/31/17 [Calcium Citrate-Vit D3 Tablet] Review of Systems - Physician Review All systems were reviewed & negative as marked: Yes - Review of Systems Constitutional: absent: Fevers Respiratory: absent: SOB, Cough Cardiovascular: absent: Chest Pain Gastrointestinal: absent: Abdominal Pain, Diarrhea, Nausea, Vomiting Genitourinary Female: absent: Dysuria, Urine Output Changes Musculoskeletal: absent: Back Pain, Neck Pain Neurological: Dizziness. absent: Headache Physical Exam Respiratory Rate: Normal Appearance: Positive for: Well-Appearing, Non-Toxic, Comfortable Pain Distress: None Mental Status: Positive for: Alert and Oriented X 3 - Systems Exam Head: Present: Atraumatic, Normocephalic Pupils: Present: PERRL Extroacular Muscles: Present: EOMI Conjunctiva: Present: Normal Mouth: Present: Moist Mucous Membranes Neck: Present: Normal Range of Motion Respiratory/Chest: Present: Clear to Auscultation, Good Air Exchange. No: Respiratory Distress, Accessory Muscle Use Cardiovascular: Present: Regular Rate and Rhythm, Normal S1, S2. No: Murmurs Abdomen: No: Tenderness, Distention, Peritoneal Signs Back: Present: Normal Inspection Upper Extremity: Present: Normal Inspection. No: Cyanosis, Edema Lower Extremity: Present: Normal Inspection. No: Edema Neurological: Present: GCS=15, CN II-XII Intact, Speech Normal Skin: Present: Warm, Dry, Normal Color. No: Rashes Psychiatric: Present: Alert, Oriented x 3, Normal Insight, Normal Concentration Medical Decision Making ED Course and Treatment: 04/19/18 13:00 Impression: 77 year old female presents to the Emergency Department complaining of dizziness/lightheadedness. ro centrla, peripheral, cardiac, metabolic infectious Plan: -- CT of Head -- EKG -- Labs -- Meclizine -- Urinalysis -- Reassess and disposition Prior Visits: Notes and results from previous visits were reviewed. Progress Notes: 04/19/18 13:30 EKG: Ordered, reviewed, and independently interpreted the EKG. Rate : 80 BPM Rhythm : NSR Interpretation : Non-specific ST/T wave changes. 04/19/18 14:53 Upon reassessment, patient informs improved symptoms and presents no new medical complaints. pt now states persistent symptoms. accpted by pmd for obs. - Lab Interpretations Lab Results: Lab Results 04/19/18 12:57: POC Glucose (mg/dL) 123 H - RAD Interpretation Narrative RAD Interpretations (Text): 04/19/18 13:54 CT of head reviewed by radiologist, shows: FINDINGS: HEMORRHAGE: No intracranial hemorrhage. BRAIN: No mass effect or edema. Chronic microvascular changes. Moderate atrophy. No acute findings VENTRICLES: Unremarkable. No hydrocephalus. CALVARIUM: Unremarkable. PARANASAL SINUSES: Unremarkable as visualized. No significant inflammatory changes. MASTOID AIR CELLS: Unremarkable as visualized. No inflammatory changes. OTHER FINDINGS: None. IMPRESSION: No acute findings Radiology Orders: 04/19/18 13:01 HEAD W/O CONTRAST [CT] Stat Consulting Software Engineer: Radiologist - EKG Interpretation Interpreted by ED Physician: Yes Type: 12 lead EKG - Medication Orders Current Medication Orders: Discontinued Medications Meclizine HCl (Antivert) 25 mg PO STAT STA Stop: 04/19/18 13:02 - Scribe Statement The provider has reviewed the documentation as recorded by the Dangeloibseun Frazier. All medical record entries made by the Dangeloibe were at my direction and personally dictated by me. I have reviewed the chart and agree that the record accurately reflects my personal performance of the history, physical exam, medical decision making, and the department course for this patient. I have also personally directed, reviewed, and agree with the discharge instructions and disposition. Disposition/Present on Arrival - Present on Arrival Any Indicators Present on Arrival: No History of DVT/PE: No History of Uncontrolled Diabetes: No Urinary Catheter: No History Surgical Site Infection Following: None - Disposition Have Diagnosis and Disposition been Completed?: Yes Diagnosis: Dizziness Disposition: HOME/ ROUTINE Disposition Time: 04:00 Patient Problems: Current Active Problems Problem Status Onset Dizziness Acute Condition: STABLE Discharge Instructions (ExitCare): Vertigo (a Type of Dizziness) (DC), Dizziness, Nonvertigo, (DC) Additional Instructions: return to er with worsening symptoms or concerns. please follow up with your doctor/clinic, specialist. Prescriptions: RX: Meclizine [Meclizine*] 25 mg PO Q6 PRN #30 tab PRN Reason: Dizziness Referrals: Antonio Kingsley MD [Staff Provider] - Follow up with primary Forms: BRAND-YOURSELF (Azerbaijani)
[2018-04-19 13:28] VITALS: BMI 28.0
--- NOTE | 2018-04-19 13:51 | CT ---
Date of service: 04/19/2018 PROCEDURE: CT HEAD WITHOUT CONTRAST. HISTORY: dizzy/near syncope COMPARISON: None available. TECHNIQUE: Axial computed tomography images were obtained through the head/brain without intravenous contrast. Radiation dose: Total exam DLP = 919.11 mGy-cm. This CT exam was performed using one or more of the following dose reduction techniques: Automated exposure control, adjustment of the mA and/or kV according to patient size, and/or use of iterative reconstruction technique. FINDINGS: HEMORRHAGE: No intracranial hemorrhage. BRAIN: No mass effect or edema. Chronic microvascular changes. Moderate atrophy. No acute findings VENTRICLES: Unremarkable. No hydrocephalus. CALVARIUM: Unremarkable. PARANASAL SINUSES: Unremarkable as visualized. No significant inflammatory changes. MASTOID AIR CELLS: Unremarkable as visualized. No inflammatory changes. OTHER FINDINGS: None. IMPRESSION: No acute findings
[2018-04-19 14:41] LABS: BASO # 0.01 K/mm3 (0.0-2.0); BASO % 0.2 % (0.0-3.0); EOS # 0.2 (0.0-0.7); EOS % 2.3 % (1.5-5.0); GRAN # 4.88 (1.4-6.5); GRAN % 75.4 % (50.0-68.0); HEMOGLOBIN 10.8 g/dL (12.0-16.0); LYMPH # 0.9 (1.2-3.4); LYMPH % 14.5 % (22.0-35.0); MEAN CELL VOLUME 91.9 fl (80.0-105.0); MEAN CORPUSCULAR HGB CONC 32.6 g/dl (31.0-37.0); MEAN PLATELET VOLUME 10.2 fl (7.0-11.0); MONO # 0.5 (0.1-0.6); MONO % 7.6 % (1.0-6.0); RBC 3.6 10^6/uL (3.5-6.1); RED CELL DISTRIBUTION WIDTH 13.2 % (11.5-14.5); WHITE BLOOD COUNT 6.5 10^3/uL (4.5-11.0)
[2018-04-19 14:48] LABS: ALB/GLOB RATIO 1.3 (1.1-1.8); ALBUMIN 4.3 g/dL (3.0-4.8); ALT/SGPT 17 U/L (7-56); AST/SGOT 15 U/L (14-36); BLOOD UREA NITROGEN 28 mg/dL (7-21); CALCIUM 9.5 mg/dL (8.4-10.5); GFR NON-AFRICAN AMERICAN 43
[2018-04-19 14:50] LABS: INR 1.03; PARTIAL THROMBOPLASTIN TIME 28.9 Seconds (25.1-36.5); PROTHROMBIN TIME 11.7 SECONDS (9.4-12.5)
[2018-04-19 14:58] LABS: URINE BILIRUBIN NEGATIVE (NEGATIVE); URINE BLOOD NEGATIVE (NEGATIVE); URINE GLUCOSE (UA) NEGATIVE (NEGATIVE); URINE LEUKOCYTE ESTERASE SMALL Leu/uL (NEGATIVE); URINE PROTEIN NEGATIVE mg/dL (<30 mg/dL); URINE UROBILINOGEN 0.2 E.U./dL (<1 E.U./dL)
[2018-04-19 14:59] LABS: TROPONIN I < 0.01 ng/mL
[2018-04-19 15:00] LABS: URINE APPEARANCE CLEAR (CLEAR); URINE COLOR YELLOW (YELLOW)
[2018-04-19 15:10] LABS: URINE BACTERIA NEG (NEG); URINE HYALINE CAST 0 - 2 /hpf; URINE RBC 0 - 2 /hpf (0-2); URINE WBC 0 - 2 /hpf (0-6)
--- NOTE | 2018-04-19 18:31 | CARD ---
APPROVED REPORT Date of service: 04/19/2018 EKG Measurement Heart [id number] IL 168P [id number] <Conclusion> Normal sinus rhythm Lead reversal I and aVR Nonspecific ST and T wave abnormality Abnormal ECG
[2018-04-19] MEDS ORDERED: Pneumococcal 23-Valent Vaccine IM ONE (20:35)
[2018-04-19] MEDS ORDERED: Influenza Vaccine 60 mcg/0.5 mL SYR (4YR UP) IM ONE (20:35)
[2018-04-19] MEDS: Insulin Reg-HIGH-Coverage SC SCH (22:15)
--- NOTE | 2018-04-20 01:39 | HP ---
HISTORY OF PRESENT ILLNESS: Patient is 77 years old who came to emergency room because of extreme dizziness. Patient says she felt lightheaded that has been going on since this morning as if things are revolving around her. No history of nausea or vomiting. No history of fever or chills. No cough or congestion. Denies any weakness or numbness in any body part, but feels lightheaded. PAST MEDICAL HISTORY: Significant for 1. Chronic lymphocytic leukemia, recently finished her chemotherapy. 2. Hypothyroidism. 3. Insulin-independent diabetes. 4. Nodular goiter. 5. Hypertension. 6. Hypothyroidism. ALLERGIES: SHE IS NOT ALLERGIC TO ANY MEDICATION. MEDICATIONS AT HOME: She is on valacyclovir for prophylaxis for herpes zoster. She is on Pravachol, metoprolol 25 daily, magnesium oxide 400 daily, Synthroid 25 mcg daily, irbesartan, she is on NovoLog mix, she is on aspirin 81 daily and Colace. SOCIAL HISTORY: She lives alone with her son. No history of smoking or drinking. PHYSICAL EXAMINATION: GENERAL: She is awake, alert, oriented, and able to communicate. VITAL SIGNS: She is afebrile, pulse 86, respirations 14, and blood pressure 120/83. LUNGS: Bilateral fair airflow. No rhonchi or crackle. HEART: S1, S2 audible. ABDOMEN: Soft, obese, and nontender. No rebound. No guarding. NEUROLOGIC: She is awake, alert, and oriented. Able to communicate. She has no focal deficit. LABORATORY DATA: WBC 6.5, hemoglobin 10.8, hematocrit 33, and platelet of 56. PT 11.7, INR 1.03. Chemistry: Sodium 140, potassium 4.1, chloride 104, CO2 of 20. BUN 20, creatinine 1.2, and blood sugar 170. Urinalysis is unremarkable. CT scan of the chest is negative. CT scan of the head is negative. EKG shows normal sinus rhythm. ASSESSMENT: 1. Dizziness and vertigo. 2. Hypertension. 3. Hyperlipidemia. 4. Insulin-dependent diabetes. 5. Chronic lymphocytic leukemia, recently finished her course of chemotherapy. PLAN: We will start patient on meclizine. We will start her on aspirin 81 daily. Monitor her blood sugar. Start her on statins. Ordered for MRI of the brain and also carotid Doppler. Follow up this patient in a.m. Encourage physical therapy evaluation in a.m. Griselda Bartholomew MD
[2018-04-20 06:30] LABS: BASO # 0.01 K/mm3 (0.0-2.0); BASO % 0.3 % (0.0-3.0); EOS # 0.2 (0.0-0.7); EOS % 5.1 % (1.5-5.0); GRAN # 2.58 (1.4-6.5); LYMPH # 0.6 (1.2-3.4); LYMPH % 16.8 % (22.0-35.0); MEAN CELL VOLUME 92.4 fl (80.0-105.0); MEAN CORPUSCULAR HEMOGLOBIN 29.2 pg (25.0-35.0); MEAN CORPUSCULAR HGB CONC 31.5 g/dl (31.0-37.0); MEAN PLATELET VOLUME 10.2 fl (7.0-11.0); MONO # 0.3 (0.1-0.6); MONO % 8.8 % (1.0-6.0); RBC 3.43 10^6/uL (3.5-6.1); RED CELL DISTRIBUTION WIDTH 13.5 % (11.5-14.5); WHITE BLOOD COUNT 3.7 10^3/uL (4.5-11.0)
[2018-04-20 06:39] LABS: ALB/GLOB RATIO 1.3 (1.1-1.8); CALCIUM 9.2 mg/dL (8.4-10.5)
[2018-04-20 06:50] LABS: FREE T4 0.66 ng/dL (0.78-2.19)
[2018-04-20] MEDS ORDERED: Metoprolol Succinate 25 mg XL Tab PO SCH (08:00)
[2018-04-20] MEDS: Insulin Reg-HIGH-Coverage SC SCH ×4 (08:14→23:31)
[2018-04-20] MEDS: Metoprolol Succinate 25 mg XL Tab PO SCH (08:15)
[2018-04-20] MEDS: Levothyroxine 25 MCG TAB PO SCH (08:15)
[2018-04-20] MEDS ORDERED: PRAVASTATIN PO SCH (10:00)
[2018-04-20] MEDS ORDERED: Magnesium Oxide 400 mg Tab UD PO SCH (10:00)
[2018-04-20] MEDS ORDERED: PRAVASTATIN SODIUM PO SCH (10:00)
[2018-04-20] MEDS ORDERED: Sodium Chloride 0.9% 1,000 ML IV SCH (10:15)
[2018-04-20 10:18] LABS: IRON 82 ug/dL (45-180)
[2018-04-20 10:27] LABS: % IRON SATURATION 32 % (20-55); TOTAL IRON BINDING CAPACITY 258 ug/dL (265-497)
--- NOTE | 2018-04-20 11:17 | US ---
PROCEDURE: Bilateral carotid artery duplex ultrasound HISTORY: 2. syncope PHYSICIAN(S): Peter Estrada MD. TECHNIQUE: Duplex sonography and color-flow Doppler were used to evaluate the carotid bifurcations and limited segments of the vertebral arteries bilaterally. FINDINGS: There is mild to moderate smooth heterogeneous plaque noted at the carotid bifurcations bilaterally, greater on the left than the right. The peak systolic velocity in the proximal right internal carotid artery is 77 cm/sec. This corresponds to a 20 to 39% proximal right ICA stenosis. Normal systolic velocities are noted in the proximal right external carotid artery. There is antegrade flow in the right vertebral artery. The peak systolic velocity in the proximal left internal carotid artery is 165 cm/sec. This corresponds to a 60-79 percent proximal left ICA stenosis. Normal systolic velocities are noted in the proximal left external carotid artery. There is antegrade flow in the left vertebral artery. IMPRESSION: 1. 60-79 percent proximal left ICA stenosis. 2. 20-39 percent proximal right ICA stenosis 3. Antegrade flow in both vertebral arteries.
[2018-04-20] MEDS: Magnesium Oxide 400 mg Tab UD PO SCH (11:42)
--- NOTE | 2018-04-20 12:02 | MRI ---
Date of service: 04/20/2018 PROCEDURE: MRI BRAIN WITHOUT CONTRAST HISTORY: dizziness/lymphoma COMPARISON: None available. TECHNIQUE: Multiplanar, multisequence MR images of the brain were obtained without intravenous contrast enhancement. FINDINGS: HEMORRHAGE: None DWI: No evidence of an acute or early subacute infarction. BRAIN PARENCHYMA: No mass effect or edema. No atrophy or chronic microvascular ischemic changes. VENTRICLES: Unremarkable. No hydrocephalus. CRANIUM: Unremarkable. ORBITS: Grossly unremarkable. PARANASAL SINUSES/MASTOIDS: Clear VASCULAR SYSTEM: Skull base flow voids intact. OTHER FINDINGS: None. IMPRESSION: No acute intracranial findings
[2018-04-20 16:49] LABS: FOLATE 7.2 ng/mL
--- NOTE | 2018-04-21 06:21 | DS ---
HISTORY OF PRESENT ILLNESS: The patient is 77 years old, seen and examined, doing well. No more dizziness, eating and tolerating. No nausea or vomiting. PHYSICAL EXAMINATION: VITAL SIGNS: She is afebrile, pulse 90, respirations 20 and blood pressure 109/62. LUNGS: Bilateral fair airflow. No rhonchi or crackle. HEART: S1 and S2 audible. ABDOMEN: Soft and nontender. No rebound. No guarding. NEUROLOGIC: The patient is awake, alert, oriented, communicative, and answer appropriately. EXTREMITIES: Bilateral legs, no edema. LABORATORY DATA: WBC 3.7, hemoglobin 10, hematocrit 31.7 and platelet 230. Chemistry: Sodium 139, potassium 4.5, chloride 105, CO2 of 30, BUN 31, creatinine 1.4 and blood sugar is 166. MRI of the brain is pending. Carotid Doppler was done that shows 60% to 79% proximal left ICA stenosis, 20% to 39% proximal right ICA stenosis. ASSESSMENT: 1. Dizziness probably secondary to vertigo. 2. Hypertension. 3. Insulin-dependent diabetes. 4. Chronic lymphocytic leukemia, finish her chemotherapy under the care of Dr. Luong. PLAN: We will follow up MRI of the brain and we will get opinion from Dr. Peter Estrada about her ICA stenosis, although it is moderate, but we will get opinion if she is a candidate for any surgical intervention like angioplasty or we should watch closely and she will be discharged later on today. Griselda Bartholomew MD
[2018-04-21 06:35] VITALS: O2SAT 96
[2018-04-21] MEDS: Insulin Reg-HIGH-Coverage SC SCH ×2 (08:24→12:33)
[2018-04-21] MEDS: Levothyroxine 25 MCG TAB PO SCH (08:24)
[2018-04-21] MEDS: Metoprolol Succinate 25 mg XL Tab PO SCH (08:24)
--- NOTE | 2018-04-21 10:41 | MRI ---
Date of service: 04/21/2018 PROCEDURE: MR Angiography of the neck without contrast HISTORY: dizziness COMPARISON: None available. TECHNIQUE: 3D [id number] angiography of the neck was performed. Rotating maximum intensity projection images of the cervical carotid and vertebral arteries were generated. The origins of the common carotid arteries were not visualized, which is a limitation inherent to the non-contrast time of flight technique. FINDINGS: RIGHT CAROTID ARTERIES: Common Carotid Artery: Normal. Carotid Bifurcation: Normal. Internal Carotid Artery:Normal. External Carotid Artery (proximal branches): Normal. LEFT CAROTID ARTERIES: Common Carotid Artery: Normal. Carotid Bifurcation: Prominent atherosclerotic plaque is identified. Internal Carotid Artery:Moderate or high-grade stenosis proximal right ICA at its origin External Carotid Artery (proximal branches): Normal. VERTEBRAL ARTERIES: There is no stenosis of the proximal or mid bilateral vertebral arteries however at the distal segments at the upper neck, signal is parallel to the plane of imaging and is lost as result, limiting the ability to exclude potential stenoses distally. Consider possible follow-up CT angiogram of the neck. OTHER FINDINGS: None. IMPRESSION: Moderate or high-grade stenosis proximal right ICA at its origin. No significant right PICA or bilateral common carotid artery stenosis. Limited evaluation of the distal vertebral arteries due to inflow signal loss. Consider possible follow-up CT angiogram of the neck.
--- NOTE | 2018-04-21 10:45 | MRI ---
Date of service: 04/21/2018 PROCEDURE: Magnetic Resonance Angiography Brain HISTORY: dizziness COMPARISON: None available. TECHNIQUE: 3D time of flight MR angiography of the intracranial arteries was performed. Rotating maximum intensity projection images were generated. FINDINGS: INTERNAL CAROTID ARTERIES: Unremarkable. The skull base, petrous, cavernous and supraclinoid segments are bilaterally widely patient. ANTERIOR CEREBRAL ARTERIES: Unremarkable. A1 and A2 segments are widely patent. Smaller distal branches unremarkable, as visualized. MIDDLE CEREBRAL ARTERIES: Unremarkable. M1 and M2 segments are widely patent. Perisylvian branches grossly symmetric. POSTERIOR CIRCULATION: Basilar Artery: Unremarkable. Distal Vertebral Arteries: Unremarkable. Posterior Cerebral Arteries: Unremarkable. Posterior Inferior Cerebellar Arteries: Unremarkable. ANEURYSM/ VASCULAR MALFORMATIONS: None. OTHER FINDINGS: None. IMPRESSION: Unremarkable MR angiography of the brain.
[2018-04-21] MEDS: Magnesium Oxide 400 mg Tab UD PO SCH (11:36)
[2018-04-21 12:02] VITALS: BP 134/67; PULSE 86; RESP 20; TEMP 98.5
--- NOTE | 2018-04-21 19:17 | DS ---
HISTORY OF PRESENT ILLNESS: The patient is 77 years old, seen and examined. She states dizziness is much better. No nausea or vomiting. No diarrhea. Eating and tolerating. No fever. No chills. No headaches. PHYSICAL EXAMINATION: VITAL SIGNS: She is afebrile. Pulse 96, respiration 18 and blood pressure 125/75. LUNGS: Bilateral fair airflow. No rhonchi or crackles. HEART: S1 and S2, audible. ABDOMEN: Soft and nontender. No rebound. No guarding. NEUROLOGIC: The patient is awake, alert and oriented. Nonfocal. LABORATORY DATA: Blood sugar is 186. The patient had MRI of the brain done, that is unremarkable. MRA of the head and the MRI of the neck both shows [id number] grade stenosis. Proximal right ICAs at its origin, no significant right plaque or bilateral common carotid artery stenosis. Limited evaluation of the distal vertebral artery due to inflow signal loss. Consider possible followup CT angio of the neck. ASSESSMENT: 1. Dizziness secondary to vertigo. 2. Hypertension. 3. Hyperlipidemia. 4. Insulin-dependent diabetes. 5. Carotid stenosis. PLAN: The patient is going to be discharged. I will ask her to followup with Dr. Peter Estrada. In the meantime, we will ask her to continue on aspirin 81 daily and I will follow her up in the office next week. Griselda Bartholomew MD
== END 2018-04-21 15:26 | disposition home or self-care (01) ==
LOC: ED 12:23 → ERH 16:21 → 2RNO 21:15
PROVIDERS: ADMIT Internal Medicine; ATTEND Internal Medicine
DX: R42 Dizziness and giddiness (principal); C91.10 Chronic lymphocytic leukemia of B-cell type not having achieved remission; E11.9 Type 2 diabetes mellitus without complications; I10 Essential (primary) hypertension; E78.5 Hyperlipidemia, unspecified; E03.9 Hypothyroidism, unspecified; I65.23 Occlusion and stenosis of bilateral carotid arteries; Z79.4 Long term (current) use of insulin
CPT/HCPCS: 36415; 70450; 70544; 70547; 70551; 80053; 80061; 81001; 82550; 82607; 82728; 82746; 82948; 83540; 83550; 83615; 83735; 84439; 84443; 84484; 85025; 85610; 85730; 87086; 93005; 93880; 97116; 97161; 99285; G0378; G8978; G8979; G8980; J7030